=== PATIENT | female | born 1975 | race Caucasian/White ===

== ENCOUNTER 2021-12-27 17:00 | Outpatient (RCR) | payer OTHER, SELFPAY ==
--- NOTE | 2021-11-29 17:42 | PTOPEVAL ---
PHYSICAL THERAPY EVALUATION AND PLAN OF CARE Thank you for referring Umm Dumont to [facility].? The patient is scheduled to be seen for therapy? 1x/week for 5 weeks. Please review, sign, date and return this plan of care KAVEH. I agree with and certify that the following plan of care is medically necessary. Referring Physician Date Attending Provider: Jacqueline Newby Evaluation Diagnosis stress incontinence Onset 6years Subjective Information twin prgenancy with vaginal Query Text:As Reported By Patient/ delivery at age 30. Initially Family did not have any difficulty for the first 10 years and age 40 she started to noticed urinary frequency and it gradually progressed to leaking with sneezing. Might also leak when she laughs very hard. Will wear a liner on occasion for just in case occasions. Notes she will go the bathroom about 6-7 x during the day and will wake at least 1 time at night to go to the bathroom. Does not always feel like the bladder is fully empty. Pain Score Pain Score 0: Self Report Cervical and Lumbar Muscle Testing Lumbar Strength Upper Abdominal Strength 3 Fair Lower Abdominal Strength 3-Fair- Lower Extremity Muscle Strength Testing Hip Strength Left Hip Flexion Strength 5 Normal Hip Extension Strength 3 Fair Hip Abduction Strength 4 Good Hip Adduction Strength 3+ Fair + Hip Medial Rotation Strength 4 Good Hip Lateral Rotation Strength 4 Good Right Hip Flexion Strength 4 Good Hip Extension Strength 3 Fair Hip Abduction Strength 3 Fair Hip Adduction Strength 3+ Fair + Hip Medial Rotation Strength 4 Good Hip Lateral Rotation Strength 4 Good Knee Strength Left Knee Flexion Strength 5 Normal Knee Extension Strength 5 Normal Right Knee Flexion Strength 4+ Good + Knee Extension Strength 4+ Good + Muscle Length Testing Muscle Length Testing Left Hamstring Length -25 Query Text:(90 - 90 Position) Right Hamstring Length -45 Query Text:(90 - 90 Position) Palpation Assessment Palpation Palpation mild tension noted through bilateral glutes General Exercise General Exercises Exercise Location core/pelvic floor Exercis
--- NOTE | 2021-12-06 12:59 | PCPTNOTE ---
Patient called & cancelled scheduled appointment this date due to traveling for a in the family.
--- NOTE | 2021-12-27 17:46 | PTOPEVAL ---
PHYSICAL THERAPY DISCHARGE NOTE Thank you for referring Umm Dumont to [facility].?Please review, sign, date and return this plan of care KAVEH. I agree with and certify that the following plan of care is medically necessary. Referring Physician Date Attending Provider: Jacqueline Newby Discharge Diagnosis stress incontinence Onset 6years Subjective Information Feels like she is doing well. Query Text:As Reported By Patient/ Hasn't really had to use pads Family and has only gotten up in the middle of the night one time in the last week and she attributes this to drinking lemonade before bed. She is working on creating better bladder habits and avoiding the just in case bathroom break. She is consistent with her HEP. Pain Assessment Timing of Pain Assessment Timing of Pain Assessment Assessment Self Report Self Report Pain Level 0 Pain Score Pain Score 0: Self Report Lower Extremity Muscle Strength Testing Hip Strength Left Hip Flexion Strength 5 Normal Hip Extension Strength 4+ Good + Hip Abduction Strength 4+ Good + Right Hip Flexion Strength 4+ Good + Hip Extension Strength 4+ Good + Hip Abduction Strength 4+ Good + Hip Adduction Strength 3+ Fair + Knee Strength Left Knee Flexion Strength 5 Normal Knee Extension Strength 5 Normal Right Knee Flexion Strength 5 Normal Knee Extension Strength 5 Normal Muscle Length Testing Muscle Length Testing Left Hamstring Length -25 Query Text:(90 - 90 Position) Right Hamstring Length -30 Query Text:(90 - 90 Position) General Exercise Exercise Location core/pelvic floor Exercise Type Resistive Exercise Description -lower abdominal bracing with Query Text:Record Sets, Reps, marching, sequential marching Resistance, and Position -quadruped cat/cow stretch with child's pose and preferencing to each side -birddog with diaphragmatic breathing x5 each side -hooklying bent knee fall out with red band x30 -sitting on yellow chinese ball: forward/backward pelvic tilts , side to side pelvic rocking; circles each
== END 2021-12-28 09:20 | disposition home or self-care (01) ==
LOC: ANHPT 17:00
PROVIDERS: PCP Family Medicine
DX: N39.3 Stress incontinence (female) (male) (principal)
CPT/HCPCS: 97110; 97140; 97162

== ENCOUNTER 2022-09-27 11:16 | Day surgery (SDC) | payer OTHER, SELFPAY ==
[2022-06-23 10:02] VITALS: BMI 32.6
[2022-09-12 15:05] VITALS: BMI 32.3
[2022-09-27 11:50] VITALS: BP 139/62; PULSE 69; RESP 20; TEMP 36.6; O2SAT 100
[2022-09-27] MEDS: LACTATED RINGERS 1,000 ML 150 ML IV CONT (11:55)
--- NOTE | 2022-09-27 11:58 | WPDANESEPPF ---
Anes - Initial Pre Proc Eval Procedure: Operation Date: 09/27/22 13:00 Proposed Procedures p Screening Colonoscopy - Ish Weber MD Date/Time: 09/27/22 11:58 Surgeon: Ish Weber MD Pre Op Diagnosis: Family History of Colon Cancer Patient Data Age: 47 Gender: F Height: 1.75 m Weight: 99.4 kg Last Vital Signs Temp 36.6 C 09/27/22 11:50 Pulse 69 09/27/22 11:50 Resp 20 09/27/22 11:50 BP 139/62 09/27/22 11:50 Pulse Ox 100 09/27/22 11:50 Allergies Allergy/AdvReac Type Severity Reaction Status Date / Time latex Allergy Intermediate Rash Verified 09/27/22 11:47 penicillin V Allergy Unknown Unknown Verified 09/27/22 11:47 clarithromycin Allergy Unknown Verified 09/27/22 11:47 Penicillins Allergy Unknown Verified 09/27/22 11:47 Sulfa (Sulfonamide Allergy Unknown Verified 09/27/22 11:47 Antibiotics) Home Medications Medication Instructions Recorded Confirmed Type sumatriptan succinate 100 mg See Rx Instructions PO .COMPLEX #9 03/02/20 09/27/22 Rx tablet (Imitrex) tabs peg 3350-electrolytes 236 240 ml PO Q10M #4,000 mL 06/23/22 09/27/22 Rx gram-22.74 gram-6.74 gram-5.86 gram solution (Golytely) Patient hx anesthesia problems: post op nausea/vomiting Family hx anesthesia problems: none Results Review: All pre-operative results and documents have been reviewed as part of the pre-operative evaluation. [facility] Past Medical History Medical History History of depression Migraines Social History Social History Social History: Smoking status: Never smoker Second hand tobacco smoke exposure: No Alcohol intake: never Substance use: never Substance use type: does not use Living arrangements: with family Gender identity (if verbalized by the patient): Female Sexual Orientation (if Verbalized by the Patient): Straight or Heterosexual Spiritual care concerns: No Anes - Eval Final PreProcedure Day of Procedure 09/27/22 11:58 Patient weight: obese Heart: regular rate and rhythm Lungs: clear to auscultation Airway: Mallampati scale class II Neurological: alert and oriented Last oral intake: >/= 8 hours ASA classification: II Emergent: no Anesthetic plan: proceed Anesthesia type and monitoring: general GIVS and standard monitoring Results Review: All pre-operative results and documents have been reviewed as part of the pre-operative evaluation. Informed Consent: The patient's anesthetic plan and its attendant risks and benefits were discussed with the patient/family/POA. Questions were solicited and answers provided to the satisfaction of the patient/family/POA.
--- NOTE | 2022-09-27 11:59 | PM.HPGS ---
History of Present Illness History of Present Illness Consent: Risks, benefits, and alternatives have been discussed and questions answered. Patient agrees to proceed with procedure. Chief complaint: Family History of Colon Cancer Narrative: Umm Dumont is a 47 year old female Presents for screening colonoscopy. Patient's family history is significant that her father had colon cancer at age 67. Patient's current weight appetite and bowel movements are normal. She denies abdominal pain. She has had no bleeding. She presents today for screening exam. Review of Systems Review of Systems: Review of systems noncontributory. [facility] Past Medical History Medical History History of depression Migraines Social History Social History Social History: Smoking status: Never smoker Second hand tobacco smoke exposure: No Alcohol intake: never Substance use: never Substance use type: does not use Living arrangements: with family Gender identity (if verbalized by the patient): Female Sexual Orientation (if Verbalized by the Patient): Straight or Heterosexual Spiritual care concerns: No Meds Home Medications and Allergies Home Medications Medication Instructions Recorded Confirmed Type sumatriptan succinate 100 mg See Rx Instructions PO .COMPLEX #9 03/02/20 09/27/22 Rx tablet (Imitrex) tabs peg 3350-electrolytes 236 240 ml PO Q10M #4,000 mL 06/23/22 09/27/22 Rx gram-22.74 gram-6.74 gram-5.86 gram solution (Golytely) Allergies Allergy/AdvReac Type Severity Reaction Status Date / Time latex Allergy Intermediate Rash Verified 09/27/22 11:47 penicillin V Allergy Unknown Unknown Verified 09/27/22 11:47 clarithromycin Allergy Unknown Verified 09/27/22 11:47 Penicillins Allergy Unknown Verified 09/27/22 11:47 Sulfa (Sulfonamide Allergy Unknown Verified 09/27/22 11:47 Antibiotics) Vital Signs Vital Signs - 24 hr 09/27/22 11:50 Temperature 98 F Pulse Rate 69 Respiratory Rate 20 Blood Pressure 139/62 Pulse Oximetry 100 Exam Narrative: Physical exam reveals patient to be alert. Vital signs stable. HEENT exam is unremarkable. Patient is anicteric. Lungs are clear to auscultation and percussion. Heart is without murmur or extra sounds. Abdomen bowel sounds present soft nontender with no hepatosplenomegaly. Digital external rectal exam is normal. Assessment and Plan Assessment and plan (1) Family history of colorectal cancer: Code(s): Z80.0 - Family history of malignant neoplasm of digestive organs Status: Acute Assessment and Plan: Patient has a family history of colon cancer in her father. Plan is for surveillance colonoscopy now and consider this at 5 year intervals in the future.
[2022-09-27 12:53] VITALS: BP 99/53; PULSE 64; RESP 18; O2SAT 99
[2022-09-27 13:03] VITALS: BP 116/64; PULSE 64; RESP 18; O2SAT 99
[2022-09-27 13:13] VITALS: BP 105/73; PULSE 61; RESP 18; O2SAT 99
--- NOTE | 2022-09-27 13:18 | WPDANESPN ---
Anes - Prog Note Post-Op Date/Time: 09/27/22 13:18 Cardiovascular status: normal Respiratory status: normal Airway patency: baseline Mental status: baseline Post-Op hydration status: normal Vital Signs: Last Vital Signs Temp 36.6 C 09/27/22 11:50 Pulse 61 09/27/22 13:13 Resp 18 09/27/22 13:13 BP 105/73 09/27/22 13:13 Pulse Ox 99 09/27/22 13:13 O2 Del Method Room Air 09/27/22 13:13 Pain Score (VAS): 0 I/O: Intake & Output 09/26/22 09/27/22 09/27/22 23:59 07:59 15:59 Intake Total 500 Balance 500 Patient Feedback: Patient satisfied with anesthetic care.
== END 2022-09-27 13:39 | disposition home or self-care (01) ==
PROVIDERS: PCP Family Medicine; Visit Provider Internal Medicine Gastroenterology
PROC: 0DJD8ZZ Inspection of Lower Intestinal Tract, Via Natural or Artificial Opening Endoscopic (ICD-10-PCS; CPT 45378; principal; 2022-09-27 13:00)
DX: Z80.0 Family history of malignant neoplasm of digestive organs (principal)
CPT/HCPCS: 45378

== ENCOUNTER 2025-09-19 13:26 | Outpatient (CLI) | payer OTHER, SELFPAY ==
--- NOTE | ~2025-09-19 | CT_ITS ---
EXAMINATION: CT abdomen pelvis wo/w con DATE: 09/19/2025 14:23 INDICATION: Hematuria. TECHNIQUE: Computed tomography (CT) of the abdomen and pelvis was performed without and with intravenous contrast using a total of 130 mL Omnipaque-350 intravenous contrast with a double-bolus technique for simultaneous opacification of the renal parenchyma and renal collecting system. Automated exposure control and iterative reconstruction technique were employed. The dose- length product was 1739.69 mGy-cm. COMPARISON: None FINDINGS: The visualized portions of the lung bases demonstrate mild atelectasis. No pleural effusion. The heart size is normal. No pericardial effusion. The liver, gallbladder, spleen, pancreas, and adrenal glands are normal. There is a 2 mm stone in right kidney. There are 2 stones in left kidney measuring up to 4 mm. The ureters are well opacified and are normal. The bladder is not well distended. There are no dilated loops of bowel. The appendix is normal. There are no pathologically enlarged lymph nodes. There is no free intraperitoneal fluid. There is mild lumbar spondylosis. IMPRESSION: 1. Bilateral nonobstructing kidney stones. Reviewed, dictated and finalized at location E.
--- OUTSIDE RECORDS SUMMARY | 2025-09-19 13:32 | XMS_ITS | Encounter Summary ---
Author Organization [facility] Address [address] [place] [address] Care Team Providers Care Supervising Editor Trailer Name Role Phone Franky Hagen MD Primary Care Provider [phone] Encounter Details Date Type Department Care Team (Late st Contact Info) Description 10/24/[address] [facility] [address] [address] Cintia Lawler MD [address] [place], [place] [id number] Social History Tobacco Use Types Packs/Day Years Used Date Smoking Tobacco: Never Assessed Comments Unknown Sex and Gender Information Value Date Recorded Sex Assigned at Not on file Legal Sex Female 5:10 AM FACSIMILE OPERATOR Gender Identity Not on file Sexual Orientation Not on file documented as of this encounter Plan of Treatment Upcoming Encounters Date Type Department Care Team (Late st Contact Info) Description 10/11/2025 8:30 AM FACSIMILE OPERATOR Appointment [facility] A [address] [place] [address] Franky Hagen MD [address] [facility] [address] [place] [address] 09/02/2026 1:30 PM CDT Office Visit [facility] [address] [place] [address] Jacqueline Newby DO [address] [address] documented as of this encounter Visit Diagnoses Not on filedocumented in this encounter Care Teams Supervising Editor Trailer Relationship Specialty Start Date End Date Franky Hagen MD PCP - General Family Practice 01/21/11 documented as of this encounter
--- OUTSIDE RECORDS SUMMARY | 2025-09-19 13:32 | XMS_ITS | Encounter Summary ---
Author Organization [facility] Address [address] [place] [address] Care Team Providers Care Washing Machine Installer Name Role Phone Franky Hagen MD Primary Care Provider [phone] Encounter Details Date Type Department Care Team (Late st Contact Info) Description 08/29/2005 Outpatient Historical [facility] A [address] [address] Cintia Lawler MD [address] [place], [place] [id number] Social History Tobacco Use Types Packs/Day Years Used Date Smoking Tobacco: Never Assessed Comments Unknown Sex and Gender Information Value Date Recorded Sex Assigned at Not on file Legal Sex Female 5:10 AM FILM LIBRARIAN Gender Identity Not on file Sexual Orientation Not on file documented as of this encounter Plan of Treatment Upcoming Encounters Date Type Department Care Team (Late st Contact Info) Description 10/11/2025 8:30 AM FILM LIBRARIAN Appointment [facility] A [address] [place] [address] Franky Hagen MD [address] [facility] [address] [place] [address] 09/02/2026 1:30 PM CDT Office Visit [facility] [address] [place] [address] Jacqueline Newby DO [address] [address] documented as of this encounter Visit Diagnoses Not on filedocumented in this encounter Care Teams Washing Machine Installer Relationship Specialty Start Date End Date Franky Hagen MD PCP - General Family Practice 01/21/11 documented as of this encounter
--- OUTSIDE RECORDS SUMMARY | 2025-09-19 13:32 | XMS_ITS | Encounter Summary ---
Author Organization [facility] Address [address] [place] [address] Care Team Providers Care Fiber Optics Technician Name Role Phone Franky Hagen MD Primary Care Provider [phone] Encounter Details Date Type Department Care Team (Late st Contact Info) Description 10/17/2005 Outpatient Historical [facility] A [address] [address] Cintia Lawler MD [address] [place], [place] [id number] Social History Tobacco Use Types Packs/Day Years Used Date Smoking Tobacco: Never Assessed Comments Unknown Sex and Gender Information Value Date Recorded Sex Assigned at Not on file Legal Sex Female 5:10 AM INFORMATION TECHNOLOGY PROFESSOR Gender Identity Not on file Sexual Orientation Not on file documented as of this encounter Plan of Treatment Upcoming Encounters Date Type Department Care Team (Late st Contact Info) Description 10/11/2025 8:30 AM INFORMATION TECHNOLOGY PROFESSOR Appointment [facility] A [address] [place] [address] Franky Hagen MD [address] [facility] [address] [place] [address] 09/02/2026 1:30 PM CDT Office Visit [facility] [address] [place] [address] Jacqueline Newby DO [address] [address] documented as of this encounter Visit Diagnoses Not on filedocumented in this encounter Care Teams Fiber Optics Technician Relationship Specialty Start Date End Date Franky Hagen MD PCP - General Family Practice 01/21/11 documented as of this encounter
--- OUTSIDE RECORDS SUMMARY | 2025-09-19 13:32 | XMS_ITS | Encounter Summary ---
Author Organization [facility] Address [address] [place] [address] Care Team Providers Care Vp Of Digital Marketing Name Role Phone Franky Hagen MD Primary Care Provider [phone] Encounter Details Date Type Department Care Team (Late st Contact Info) Description 06/28/2005 Outpatient Historical [facility] A [address] [address] Cintia Lawler MD [address] [place], [place] [id number] Social History Tobacco Use Types Packs/Day Years Used Date Smoking Tobacco: Never Assessed Comments Unknown Sex and Gender Information Value Date Recorded Sex Assigned at Not on file Legal Sex Female 5:10 AM RN SPINE Gender Identity Not on file Sexual Orientation Not on file documented as of this encounter Plan of Treatment Upcoming Encounters Date Type Department Care Team (Late st Contact Info) Description 10/11/2025 8:30 AM RN SPINE Appointment [facility] A [address] [place] [address] Franky Hagen MD [address] [facility] [address] [place] [address] 09/02/2026 1:30 PM CDT Office Visit [facility] [address] [place] [address] Jacqueline Newby DO [address] [address] documented as of this encounter Visit Diagnoses Not on filedocumented in this encounter Care Teams Vp Of Digital Marketing Relationship Specialty Start Date End Date Franky Hagen MD PCP - General Family Practice 01/21/11 documented as of this encounter
--- OUTSIDE RECORDS SUMMARY | 2025-09-19 13:32 | XMS_ITS | Encounter Summary ---
Author Organization [facility] Address [address] [place] [address] Care Team Providers Care Crusher Tender Name Role Phone Franky Hagen MD Primary Care Provider [phone] Encounter Details Date Type Department Care Team (Late st Contact Info) Description 12/22/2005 Outpatient Historical [facility] A [address] [address] Cintia Lawler MD [address] [place], [place] [id number] Social History Tobacco Use Types Packs/Day Years Used Date Smoking Tobacco: Never Assessed Comments Unknown Sex and Gender Information Value Date Recorded Sex Assigned at Not on file Legal Sex Female 5:10 AM ROCKET ENGINE TESTER Gender Identity Not on file Sexual Orientation Not on file documented as of this encounter Plan of Treatment Upcoming Encounters Date Type Department Care Team (Late st Contact Info) Description 10/11/2025 8:30 AM ROCKET ENGINE TESTER Appointment [facility] A [address] [place] [address] Franky Hagen MD [address] [facility] [address] [place] [address] 09/02/2026 1:30 PM CDT Office Visit [facility] [address] [place] [address] Jacqueline Newby DO [address] [address] documented as of this encounter Visit Diagnoses Not on filedocumented in this encounter Care Teams Crusher Tender Relationship Specialty Start Date End Date Franky Hagen MD PCP - General Family Practice 01/21/11 documented as of this encounter
--- OUTSIDE RECORDS SUMMARY | 2025-09-19 13:32 | XMS_ITS | Encounter Summary ---
Author Organization [facility] Address [address] [place] [address] Care Team Providers Care Gas Plant Operator Name Role Phone Franky Hagen MD Primary Care Provider [phone] Encounter Details Date Type Department Care Team (Late st Contact Info) Description 11/30/2005 Outpatient Historical [facility] A [address] [address] Cintia Lawler MD [address] [place], [place] [id number] Social History Tobacco Use Types Packs/Day Years Used Date Smoking Tobacco: Never Assessed Comments Unknown Sex and Gender Information Value Date Recorded Sex Assigned at Not on file Legal Sex Female 5:10 AM GASOLINE ENGINE ASSEMBLER Gender Identity Not on file Sexual Orientation Not on file documented as of this encounter Plan of Treatment Upcoming Encounters Date Type Department Care Team (Late st Contact Info) Description 10/11/2025 8:30 AM GASOLINE ENGINE ASSEMBLER Appointment [facility] A [address] [place] [address] Franky Hagen MD [address] [facility] [address] [place] [address] 09/02/2026 1:30 PM CDT Office Visit [facility] [address] [place] [address] Jacqueline Newby DO [address] [address] documented as of this encounter Visit Diagnoses Not on filedocumented in this encounter Care Teams Gas Plant Operator Relationship Specialty Start Date End Date Franky Hagen MD PCP - General Family Practice 01/21/11 documented as of this encounter
--- OUTSIDE RECORDS SUMMARY | 2025-09-19 13:32 | XMS_ITS | Encounter Summary ---
Author Organization [facility] Address [address] [place] [address] Care Team Providers Care Sample Tester Grinder Name Role Phone Franky Hagen MD Primary Care Provider Encounter Details Date Type Department Care Team (Late st Contact Info) Description 02/02/2006 Outpatient Historical [facility] A [address] [address] Cintia Lawler MD [address] [place], [place] [phone] Social History Tobacco Use Types Packs/Day Years Used Date Smoking Tobacco: Never Assessed Comments Unknown Sex and Gender Information Value Date Recorded Sex Assigned at Not on file Legal Sex Female 5:10 AM PRODUCT SAFETY COMPLIANCE LEADER Gender Identity Not on file Sexual Orientation Not on file documented as of this encounter Plan of Treatment Upcoming Encounters Date Type Department Care Team (Late st Contact Info) Description 10/11/2025 8:30 AM PRODUCT SAFETY COMPLIANCE LEADER Appointment [facility] A [address] [place] [address] Franky Hagen MD [address] [facility] [address] [place] [address] 09/02/2026 1:30 PM CDT Office Visit [facility] [address] [place] [address] Jacqueline Newby DO [address] [address] documented as of this encounter Visit Diagnoses Not on filedocumented in this encounter Care Teams Sample Tester Grinder Relationship Specialty Start Date End Date Franky Hagen MD PCP - General Family Practice 01/21/11 documented as of this encounter
--- OUTSIDE RECORDS SUMMARY | 2025-09-19 13:32 | XMS_ITS | Encounter Summary ---
Author Organization [facility] Address [address] [place] [address] Care Team Providers Care Fiber Designer Name Role Phone Franky Hagen MD Primary Care Provider [phone] Encounter Details Date Type Department Care Team (Late st Contact Info) Description 11/02/[address] [facility] A [address] [address] Cintia Lawler MD [address] [place], [place] [phone] Social History Tobacco Use Types Packs/Day Years Used Date Smoking Tobacco: Never Assessed Comments Unknown Sex and Gender Information Value Date Recorded Sex Assigned at Not on file Legal Sex Female 5:10 AM RAT POISONER Gender Identity Not on file Sexual Orientation Not on file documented as of this encounter Plan of Treatment Upcoming Encounters Date Type Department Care Team (Late st Contact Info) Description 10/11/2025 8:30 AM RAT POISONER Appointment [facility] A [address] [place] [address] Franky Hagen MD [address] [facility] [address] [place] [address] 09/02/2026 1:30 PM CDT Office Visit [facility] [address] [place] [address] Jacqueline Newby DO [address] [address] documented as of this encounter Visit Diagnoses Not on filedocumented in this encounter Care Teams Fiber Designer Relationship Specialty Start Date End Date Franky Hagen MD PCP - General Family Practice 01/21/11 documented as of this encounter
--- OUTSIDE RECORDS SUMMARY | 2025-09-19 13:32 | XMS_ITS | Encounter Summary ---
Author Organization [facility] Address [address] [place] [address] Care Team Providers Care Wicker Worker Name Role Phone Franky Hagen MD Primary Care Provider [phone] Encounter Details Date Type Department Care Team (Late st Contact Info) Description 07/12/2005 Outpatient Historical [facility] [address] [place] [address] Cintia Lawler MD [address] [place], [place] [id number] Social History Tobacco Use Types Packs/Day Years Used Date Smoking Tobacco: Never Assessed Comments Unknown Sex and Gender Information Value Date Recorded Sex Assigned at Not on file Legal Sex Female 5:10 AM CRAYON PAINTER Gender Identity Not on file Sexual Orientation Not on file documented as of this encounter Plan of Treatment Upcoming Encounters Date Type Department Care Team (Late st Contact Info) Description 10/11/2025 8:30 AM CRAYON PAINTER Appointment [facility] A [address] [place] [address] Franky Hagen MD [address] [facility] [address] [place] [address] 09/02/2026 1:30 PM CDT Office Visit [facility] [address] [place] [address] Jacqueline Newby DO [address] [address] documented as of this encounter Visit Diagnoses Not on filedocumented in this encounter Care Teams Wicker Worker Relationship Specialty Start Date End Date Franky Hagen MD PCP - General Family Practice 01/21/11 documented as of this encounter
--- OUTSIDE RECORDS SUMMARY | 2025-09-19 13:32 | XMS_ITS | Encounter Summary ---
Author Organization [facility] Address [address] [place] [address] Care Team Providers Care Box Lidder Name Role Phone Franky Hagen MD Primary Care Provider [phone] Encounter Details Date Type Department Care Team (Late st Contact Info) Description 08/03/[address] [facility] A [address] [address] Cintia Lawler MD [address] [place], [place] [id number] Social History Tobacco Use Types Packs/Day Years Used Date Smoking Tobacco: Never Assessed Comments Unknown Sex and Gender Information Value Date Recorded Sex Assigned at Not on file Legal Sex Female 5:10 AM ACCOUNTING RECONCILIATION CLERK Gender Identity Not on file Sexual Orientation Not on file documented as of this encounter Plan of Treatment Upcoming Encounters Date Type Department Care Team (Late st Contact Info) Description 10/11/2025 8:30 AM ACCOUNTING RECONCILIATION CLERK Appointment [facility] A [address] [place] [address] Franky Hagen MD [address] [facility] [address] [place] [address] 09/02/2026 1:30 PM CDT Office Visit [facility] [address] [place] [address] Jacqueline Newby DO [address] [address] documented as of this encounter Visit Diagnoses Not on filedocumented in this encounter Care Teams Box Lidder Relationship Specialty Start Date End Date Franky Hagen MD PCP - General Family Practice 01/21/11 documented as of this encounter
--- OUTSIDE RECORDS SUMMARY | 2025-09-19 13:32 | XMS_ITS | Encounter Summary ---
Author Organization [facility] Address [address] [place] [address] Care Team Providers Care Information Systems Analyst Name Role Phone Franky Hagen MD Primary Care Provider Encounter Details Date Type Department Care Team (Late st Contact Info) Description 09/28/2005 Outpatient Historical [facility] A [address] [address] Cintia Lawler MD [address] [place], [place] [id number] Social History Tobacco Use Types Packs/Day Years Used Date Smoking Tobacco: Never Assessed Comments Unknown Sex and Gender Information Value Date Recorded Sex Assigned at Not on file Legal Sex Female 5:10 AM RETAIL ADMINISTRATIVE ASSISTANT Gender Identity Not on file Sexual Orientation Not on file documented as of this encounter Plan of Treatment Upcoming Encounters Date Type Department Care Team (Late st Contact Info) Description 10/11/2025 8:30 AM RETAIL ADMINISTRATIVE ASSISTANT Appointment [facility] A [address] [place] [address] Franky Hagen MD [address] [facility] [address] [place] [address] 09/02/2026 1:30 PM CDT Office Visit [facility] [address] [place] [address] Jacqueline Newby DO [address] [address] documented as of this encounter Visit Diagnoses Not on filedocumented in this encounter Care Teams Information Systems Analyst Relationship Specialty Start Date End Date Franky Hagen MD PCP - General Family Practice 01/21/11 documented as of this encounter
--- OUTSIDE RECORDS SUMMARY | 2025-09-19 13:32 | XMS_ITS | Encounter Summary ---
Author Organization [facility] Address [address] [place] [address] Care Team Providers Care Cellular Plastics Cutter Name Role Phone Franky Hagen MD Primary Care Provider [phone] Encounter Details Date Type Department Care Team (Late st Contact Info) Description 11/02/2007 Outpatient Historical [facility] A [address] [address] Cintia Lawler MD [address] [place], [place] [id number] Social History Tobacco Use Types Packs/Day Years Used Date Smoking Tobacco: Never Assessed Comments Unknown Sex and Gender Information Value Date Recorded Sex Assigned at Not on file Legal Sex Female 5:10 AM BROKERAGE CLERK Gender Identity Not on file Sexual Orientation Not on file documented as of this encounter Plan of Treatment Upcoming Encounters Date Type Department Care Team (Late st Contact Info) Description 10/11/2025 8:30 AM BROKERAGE CLERK Appointment [facility] A [address] [place] [address] Franky Hagen MD [address] [facility] [address] [place] [address] 09/02/2026 1:30 PM CDT Office Visit [facility] [address] [place] [address] Jacqueline Newby DO [address] [address] documented as of this encounter Visit Diagnoses Not on filedocumented in this encounter Care Teams Cellular Plastics Cutter Relationship Specialty Start Date End Date Franky Hagen MD PCP - General Family Practice 01/21/11 documented as of this encounter
--- OUTSIDE RECORDS SUMMARY | 2025-09-19 13:32 | XMS_ITS | Clinical Summary ---
Author Organization [facility] Address [address] [place] [address] Care Team Providers Care Finisher Cold Rolling Name Role Phone Franky Hagen MD Primary Care Provider [phone] [facility],non-owned Affiliates and Associated Physician Practices is amultiple site organization consisting of ambulatory clinics and hospital sitesin [place], [place], [place] and [place]. This disclosure is being madepursuant to the Care Everywhere program and may not contain all information available regarding this patient. Last updated 18.[facility] Allergies Active Allergy Reactions Criticality Noted Date Comments Latex Rash Medium 11/18/2009 Penicillins Rash Medium 11/18/2009 Immunizations Immunization Administration Dates Next Due INFLUENZA VACCINE, QUADR. (F LUZONE; FLULAVAL; FLUARIX; AFLURIA QUADRIVALENT; 6MO+), 0.5 ML (IIV4) 08/19/2020,09/12/2019 Influenza Pf Intradermal (ADULT) 08/19/2016 Social History Tobacco Use Types Packs/Day Years Used Date Smoking Tobacco: Never Assessed Comments Unknown Sex and Gender Information Value Date Recorded Sex Assigned at Not on file Legal Sex Female 4:34 PM CDT Gender Identity Not on file Sexual Orientation Not on file Plan of Treatment Health Maintenance Due Date Last Done Comments COLOGUARD (AGES 45-75) - COL ON CA SCREENING 1975 COLON MONITORING 1975 COLONOSCOPY - COLON CA SCREENING 1975 CT COLONOGRAPHY - COLON CA SCREENING 1975 Colorectal Cancer Screening 1975 FIT - COLON CA SCREENING 1975 FLEX SIG - COLON CA SCREENING 1975 LIPID TESTING 1975 HIV SCREENING 1990 HEPATITIS C SCREENING 06/12/1993 DTAP/TDAP/TD VACCINES (1 - Tdap) 1994 HEPATITIS B VACCINE (1 of 3 - 19+ 3-dose series) 1994 MAMMOGRAM 06/18/2021 06/18/2019 DEPRESSION SCREENING 11/20/2024 PNEUMOCOCCAL VACCINE 50+ (1 of 1 - PCV) 2025 ZOSTER VACCINE (1 of 2) 2025 COVID-19 VACCINE (1 - 2023-2 5 season) 2025 INFLUENZA VACCINE (#1) 2025 0, 09/12/2019, 08/19/2016 HIB VACCINE Aged Out No longer eligi ble based on patient's age to complete this topic HPV VACCINE Aged Out No longer eligi ble based on patient's age to complete this topic MENINGOCOCCAL (Group B) VACCINE SHARED DECISION-MAKING Aged Out No longer eligible based on patient's age to complete this topic MENINGOCOCCAL GROUPS A/C/Y/W VACCINE Aged Out No longer eligible b ased on patient's age to complete this topic Insurance [facility] Care Teams Finisher Cold Rolling Relationship Specialty Start Date End Date Franky Hagen MD [address] [place] [address] PCP - General Family Medicine 08/19/16
--- OUTSIDE RECORDS SUMMARY | 2025-09-19 13:32 | XMS_ITS | Encounter Summary ---
Author Organization [facility] Address [address] [place] [address] Care Team Providers Care Software Configuration Analyst Name Role Phone Franky Hagen MD Primary Care Provider [phone] Encounter Details Date Type Department Care Team (Late st Contact Info) Description 12/16/2005 Outpatient Historical [facility] Maternal and [address] [place] [address] Ilya Antonio MD [address] [place] [address] Social History Tobacco Use Types Packs/Day Years Used Date Smoking Tobacco: Never Assessed Comments Unknown Sex and Gender Information Value Date Recorded Sex Assigned at Not on file Legal Sex Female 5:10 AM FUNNEL SETTER Gender Identity Not on file Sexual Orientation Not on file documented as of this encounter Plan of Treatment Upcoming Encounters Date Type Department Care Team (Late st Contact Info) Description 10/11/2025 8:30 AM FUNNEL SETTER Appointment [facility] [place] A [address] [place] [address] Franky Hagen MD [address] [facility] [address] [place] [address] 09/02/2026 1:30 PM CDT Office Visit [facility] [address] [place] [address] Jacqueline Newby, DO [address] [facility] [address] [place] [address] documented as of this encounter Visit Diagnoses Not on filedocumented in this encounter Care Teams Software Configuration Analyst Relationship Specialty Start Date End Date Franky Hagen MD PCP - General Family Practice 01/21/11 documented as of this encounter
--- OUTSIDE RECORDS SUMMARY | 2025-09-19 13:32 | XMS_ITS | Encounter Summary ---
Author Organization [facility] Address [address] [place] [address] Care Team Providers Care Over Hauler Helper Name Role Phone Franky Hagen MD Primary Care Provider [phone] Encounter Details Date Type Department Care Team (Late st Contact Info) Description 11/16/2005 Outpatient Historical [facility] [address] [address] Cintia Lawler MD [address] [place], [place] [phone] Social History Tobacco Use Types Packs/Day Years Used Date Smoking Tobacco: Never Assessed Comments Unknown Sex and Gender Information Value Date Recorded Sex Assigned at Not on file Legal Sex Female 5:10 AM CHANGE OVER Gender Identity Not on file Sexual Orientation Not on file documented as of this encounter Plan of Treatment Upcoming Encounters Date Type Department Care Team (Late st Contact Info) Description 10/11/2025 8:30 AM CHANGE OVER Appointment [facility] A [address] [place] [address] Franky Hagen MD [address] [facility] [address] [place] [address] 09/02/2026 1:30 PM CDT Office Visit [facility] [address] [place] [address] Jacqueline Newby DO [address] [address] documented as of this encounter Visit Diagnoses Not on filedocumented in this encounter Care Teams Over Hauler Helper Relationship Specialty Start Date End Date Franky Hagen MD PCP - General Family Practice 01/21/11 documented as of this encounter
--- OUTSIDE RECORDS SUMMARY | 2025-09-19 13:32 | XMS_ITS | Encounter Summary ---
Author Organization [facility] Address [address] [place] [address] Care Team Providers Care Fire Battalion Chief Name Role Phone Franky Hagen MD Primary Care Provider [phone] Encounter Details Date Type Department Care Team (Latest Contact Info) Description 12/15/2005 Inpatient Historical HIS OB PREADMIT Cintia Lawler MD NO ADDRESS ON FILE TRANS HYPERTEN-DELIVERED (Primary Dx) Social History Tobacco Use Types Packs/Day Years Used Date Smoking Tobacco: Never Assessed Comments Unknown Sex and Gender Information Value Date Recorded Sex Assigned at Not on file Legal Sex Female 5:10 AM LIFE SCIENCES MANAGER Gender Identity Not on file Sexual Orientation Not on file documented as of this encounter Plan of Treatment Upcoming Encounters Date Type Department Care Team (Late st Contact Info) Description 10/11/2025 8:30 AM LIFE SCIENCES MANAGER Appointment [facility] [place] [address] [place] [address] Franky Hagen MD [address] [place] [id number] 09/02/2026 1:30 PM CDT Office Visit [facility] [address] [place] [address] Jacqueline Newby DO [address] [facility] [place] [address] [place] [address] documented as of this encounter Procedures Procedure Name Priority Date/Time Associated Diagnosis Comments CBC WITH DIFFERENTIAL Routine 12/23/2005 5:55 AM LIFE SCIENCES MANAGER CBC WITH DIFFERENTIAL Routine 12/23/2005 5:55 AM LIFE SCIENCES MANAGER BLOOD GAS CORD VENOUS Routine 12/22/2005 8:00 PM LIFE SCIENCES MANAGER BLOOD GAS CORD ARTERIAL Routine 12/22/2005 8:00 PM LIFE SCIENCES MANAGER BLOOD GAS CORD VENOUS Routine 12/22/2005 7:58 PM LIFE SCIENCES MANAGER BLOOD GAS CORD ARTERIAL Routine 12/22/2005 7:58 PM LIFE SCIENCES MANAGER CREATININE CLEARANCE, SERUM Routine 12/22/2005 1:02 PM LIFE SCIENCES MANAGER CREATININE, 24 HR URINE Routine 12/22/2005 1:02 PM LIFE SCIENCES MANAGER PROTEIN, 24 HR URINE Routine 12/22/2005 1:02 PM LIFE SCIENCES MANAGER CREATININE CLEARANCE Routine 12/22/2005 1:02 PM LIFE SCIENCES MANAGER CBC WITH DIFFERENTIAL Routine 12/22/2005 6:20 AM LIFE SCIENCES MANAGER CBC WITH DIFFERENTIAL Routine 12/22/2005 6:20 AM LIFE SCIENCES MANAGER URIC ACID Routine 12/22/2005 6:20 AM LIFE SCIENCES MANAGER CREATININE Routine 12/22/2005 6:20 AM LIFE SCIENCES MANAGER URINALYSIS W/REFLEX MICROSCOPIC Routine 12/20/2005 10:50 AM LIFE SCIENCES MANAGER CBC WITH DIFFERENTIAL Routine 12/20/2005 10:00 AM LIFE SCIENCES MANAGER CBC WITH DIFFERENTIAL Routine 12/20/2005 10:00 AM LIFE SCIENCES MANAGER URIC ACID Routine 12/20/2005 10:00 AM LIFE SCIENCES MANAGER CREATININE Routine 12/20/2005 10:00 AM LIFE SCIENCES MANAGER CBC WITH DIFFERENTIAL Routine 12/19/2005 9:18 AM LIFE SCIENCES MANAGER CBC WITH DIFFERENTIAL Routine 12/19/2005 9:18 AM LIFE SCIENCES MANAGER URIC ACID Routine 12/19/2005 9:18 AM LIFE SCIENCES MANAGER ALT Routine 12/19/2005 9:18 AM LIFE SCIENCES MANAGER AST Routine 12/19/2005 9:18 AM LIFE SCIENCES MANAGER CREATININE Routine 12/19/2005 9:18 AM LIFE SCIENCES MANAGER CBC WITH DIFFERENTIAL Routine 12/17/2005 7:00 AM LIFE SCIENCES MANAGER CBC WITH DIFFERENTIAL Routine 12/17/2005 7:00 AM LIFE SCIENCES MANAGER URIC ACID Routine 12/17/2005 7:00 AM LIFE SCIENCES MANAGER AST Routine 12/17/2005 7:00 AM LIFE SCIENCES MANAGER LACTATE DEHYDROGENASE Routine 12/17/2005 7:00 AM LIFE SCIENCES MANAGER CREATININE CLEARANCE, SERUM Routine 12/16/2005 6:49 PM LIFE SCIENCES MANAGER CREATININE, 24 HR URINE Routine 12/16/2005 6:49 PM LIFE SCIENCES MANAGER PROTEIN, 24 HR URINE Routine 12/16/2005 6:49 PM LIFE SCIENCES MANAGER CREATININE CLEARANCE Routine 12/16/2005 6:49 PM LIFE SCIENCES MANAGER CBC WITH DIFFERENTIAL Routine 12/16/2005 5:46 AM LIFE SCIENCES MANAGER CBC WITH DIFFERENTIAL Routine 12/16/2005 5:46 AM LIFE SCIENCES MANAGER URIC ACID Routine 12/16/2005 5:46 AM LIFE SCIENCES MANAGER DIC PROFILE Routine 12/15/2005 5:10 PM LIFE SCIENCES MANAGER CBC WITH DIFFERENTIAL Routine 12/15/2005 5:10 PM LIFE SCIENCES MANAGER CBC WITH DIFFERENTIAL Routine 12/15/2005 5:10 PM LIFE SCIENCES MANAGER URINALYSIS W/REFLEX MICROSCOPIC Routine 12/15/2005 5:10 PM LIFE SCIENCES MANAGER URIC ACID Routine 12/15/2005 5:10 PM LIFE SCIENCES MANAGER AST Routine 12/15/2005 5:10 PM LIFE SCIENCES MANAGER LACTATE DEHYDROGENASE Routine 12/15/2005 5:10 PM LIFE SCIENCES MANAGER documented in this encounter Results * (ABNORMAL) CBC WITH DIFFERENTIAL (12/23/2005 5:55 AM LIFE SCIENCES MANAGER) NEUTROPHILS 78(H) 45 - 70 % INTERFAC E SYSTEM LYMPHOCYTES 17 16 - 45 % INTERFAC E SYSTEM MONOCYTES 5 3 - 13 % INTERFACE SYSTEM EOSINOPHILS 0 0 - 7 % INTERFAC E SYSTEM BASOPHILS 0 0 - 2 % INTERFACE SYSTEM NEUTROPHIL ABSOLUTE 9.77(H) 1.90 - 7.00 K/uL INTERFACE SYSTEM LYMPHOCYTE ABSOLUTE 2.07 0.70 - 4.50 K/uL INTERFACE SYSTEM MONOCYTE ABSOLUTE 0.60 0.10 - 1.30 K/uL INTERFACE SYSTEM EOSINOPHIL ABSOLUTE 0.04 0.00 - 0.70 K/uL INTERFACE SYSTEM BASOPHILS ABSOLUTE 0.00 0.00 - 0.20 K/uL INTERFACE SYSTEM 12/23/2005 5:55 AM LIFE SCIENCES MANAGER Cintia Lawler MD HEMATOLOGY ORDERABLES Final Res ult INTERFACE SYSTEM Refer to clinic/hospital department * (ABNORMAL) CBC WITH DIFFERENTIAL (12/23/2005 5:55 AM LIFE SCIENCES MANAGER) WBC 12.5(H) 4.0 - 9.8 K/uL INTERFACE SYSTEM RBC 4.03 3.90 - 4.90 M/uL INTERFACE SYSTEM HEMOGLOBIN 11.8 11.8 - 14.8 g/dL INTERFACE SYSTEM HEMATOCRIT 34.6(L) 35.5 - 44.0 % INTERFACE SYSTEM MCV 85.9 82.0 - 99.0 fL INTERFACE SYSTEM MCH 29.3 27.2 - 32.6 pg INTERFACE SYSTEM MCHC 34.1 31.5 - 35.5 % INTERFACE SYSTEM RDW 14.6(H) 11.5 - 14.5 % INTERFACE SYSTEM RDW-STDEV 44.9 37.1 - 48.7 fL INTERFACE SYSTEM PLATELETS 148 140 - 350 K/uL INTERFACE SYSTEM MPV 13.5(H) 9.3 - 12.4 fL INTERFACE SYSTEM 12/23/2005 5:55 AM LIFE SCIENCES MANAGER Cintia Lawler MD HEMATOLOGY ORDERABLES Final Res ult Performing Organization Address City/[facility] [[email or web address]] Co de Phone Number INTERFACE SYSTEM Refer to clinic/hospital department * (ABNORMAL) BLOOD GAS CORD VENOUS (12/22/2005 8:00 PM LIFE SCIENCES MANAGER) PH CORD VENOUS 7.41 7.23 - 7.46 INTERFACE SYSTEM PCO2 CORD VENOUS 37 28 - 57 mm Hg INTERFACE SYSTEM PO2 CORD VENOUS 20 15 - 42 mm Hg INTERFACE SYSTEM SO2 CORD AMISH 55 14 - 75 % INTERFA CE SYSTEM FO2HB CORD VENOUS 54(L) 94 - 98 % INTERFACE SYSTEM HCO3 CORD VENOUS 23 17 - 25 mmol/L INTERFACE SYSTEM BASE EXCESS CORD VENOUS -1.6 -5.8 - 0.7 mmol/L INTERFACE SYSTEM HEMOGLOBIN CORD VENOUS 14.9 14.5 - 22.5 g/dL INTERFACE SYSTEM 12/22/2005 8:00 PM LIFE SCIENCES MANAGER Cintia Lawler MD ABG ORDERABLES Final Result Performing Organization Address [facility] [[email or web address]] Co de Phone Number INTERFACE SYSTEM Refer to clinic/hospital department * (ABNORMAL) BLOOD GAS CORD ARTERIAL (12/22/2005 8:00 PM LIFE SCIENCES MANAGER) PH CORD ARTERIAL 7.40 7.14 - 7.40 INTERFACE SYSTEM PCO2 CORD ARTERIAL 40 32 - 69 mm Hg INTERFACE SYSTEM PO2 CORD ARTERIAL 14 8 - 33 mm Hg INTERFACE SYSTEM SO2 CORD ARTERIAL 27 5 - 59 % INTERFACE SYSTEM FO2HB CORD ARTERIAL 26(L) 94 - 98 % INTERFACE SYSTEM HCO3 CORD ARTERIAL 24 16 - 27 mmol/L INTERFACE SYSTEM BASE EXCESS CORD ARTERIAL -0.6 -7.6 - 1.3 mmol/L INTERFACE SYSTEM HEMOGLOBIN CORD ARTERIAL 15.6 14.5 - 22.5 g/dL INTERFACE SYSTEM 12/22/2005 8:00 PM LIFE SCIENCES MANAGER Cintia Lawler MD ABG ORDERABLES Final Result Performing Organization Address [facility] Phone Number INTERFACE SYSTEM Refer to clinic/hospital department * (ABNORMAL) BLOOD GAS CORD VENOUS (12/22/2005 7:58 PM LIFE SCIENCES MANAGER) PH CORD VENOUS 7.44 7.23 - 7.46 INTERFACE SYSTEM PCO2 CORD VENOUS 33 28 - 57 mm Hg INTERFACE SYSTEM PO2 CORD VENOUS 22 15 - 42 mm Hg INTERFACE SYSTEM SO2 CORD AMISH 63 14 - 75 % INTERFA CE SYSTEM FO2HB CORD VENOUS 61(L) 94 - 98 % INTERFACE SYSTEM HCO3 CORD VENOUS 22 17 - 25 mmol/L INTERFACE SYSTEM BASE EXCESS CORD VENOUS -1.7 -5.8 - 0.7 mmol/L INTERFACE SYSTEM HEMOGLOBIN CORD VENOUS 13.9(L) 14.5 - 22.5 g/dL INTERFACE SYSTEM 12/22/2005 7:58 PM LIFE SCIENCES MANAGER Cintia Lawler MD ABG ORDERABLES Final Result Performing Organization Address [facility] Phone Number INTERFACE SYSTEM Refer to clinic/hospital department * (ABNORMAL) BLOOD GAS CORD ARTERIAL (12/22/2005 7:58 PM LIFE SCIENCES MANAGER) PH CORD ARTERIAL 7.38 7.14 - 7.40 INTERFACE SYSTEM PCO2 CORD ARTERIAL 40 32 - 69 mm Hg INTERFACE SYSTEM PO2 CORD ARTERIAL 18 8 - 33 mm Hg INTERFACE SYSTEM SO2 CORD ARTERIAL 41 5 - 59 % INTERFACE SYSTEM FO2HB CORD ARTERIAL 39(L) 94 - 98 % INTERFACE SYSTEM HCO3 CORD ARTERIAL 23 16 - 27 mmol/L INTERFACE SYSTEM BASE EXCESS CORD ARTERIAL -2.0 -7.6 - 1.3 mmol/L INTERFACE SYSTEM HEMOGLOBIN CORD ARTERIAL 14.2(L) 14.5 - 22.5 g/dL INTERFACE SYSTEM 12/22/2005 7:58 PM LIFE SCIENCES MANAGER Cintia Lawler MD ABG ORDERABLES Final Result Performing Organization Address [facility] Phone Number INTERFACE SYSTEM Refer to clinic/hospital department * CREATININE CLEARANCE (12/22/2005 1:02 PM LIFE SCIENCES MANAGER) CREATININE CLEARANCE 109 75 - 125 mL/min/1.7 sq meter INTERFACE SYSTEM Comment:Creatinine Clearance result is not corrected for body surface area. 12/22/2005 1:02 PM LIFE SCIENCES MANAGER Cintia Lawler MD URINE ORDERABLES Final Result Performing Organization Address [facility] Phone Number INTERFACE SYSTEM Refer to clinic/hospital department * (ABNORMAL) PROTEIN, 24 HR URINE (12/22/2005 1:02 PM LIFE SCIENCES MANAGER) PROTEIN TOTAL, 24 HR URINE 0.53(H) 0.00 - 0.15 g/24 hrs INTERFACE SYSTEM PROTEIN CONCENTRATION 34.0 mg/dL INTERFACE SYSTEM 12/22/2005 1:02 PM LIFE SCIENCES MANAGER Cintia Lawler MD URINE ORDERABLES Final Result Performing Organization Address [facility] Phone Number INTERFACE SYSTEM Refer to clinic/hospital department * CREATININE, 24 HR URINE (12/22/2005 1:02 PM LIFE SCIENCES MANAGER) START DATE 24 HR UR : [id number] :[id number] :0:0 INTERFACE SYSTEM START TIME 24 HR UR 1100 time INTERFACE SYSTEM LENGTH OF COLLECTION 24 23 - 25 hr INTERFACE SYSTEM VOLUME, 24 HR URINE 1550 mL INTERFACE SYSTEM CREATININE, 24 HR URINE 1.3 0.6 - 1.8 g/24 hrs INTERFACE SYSTEM 12/22/2005 1:02 PM LIFE SCIENCES MANAGER Cintia Lawler MD URINE ORDERABLES Final Result Performing Organization Address [facility] Phone Number INTERFACE SYSTEM Refer to clinic/hospital department * CREATININE CLEARANCE, SERUM (12/22/2005 1:02 PM LIFE SCIENCES MANAGER) CREATININE 0.8 0.4 - 1.2 mg/dL INTERFACE SYSTEM 12/22/2005 1:02 PM LIFE SCIENCES MANAGER us Cintia Lawler MD CHEMISTRY ORDERABLES Final Resu lt Performing Organization Address City/[facility] [[email or web address]] Co de Phone Number INTERFACE SYSTEM Refer to clinic/hospital department * CBC WITH DIFFERENTIAL (12/22/2005 6:20 AM LIFE SCIENCES MANAGER) NEUTROPHILS 68 45 - 70 % INTERFAC E SYSTEM LYMPHOCYTES 26 16 - 45 % INTERFAC E SYSTEM MONOCYTES 6 3 - 13 % INTERFACE SYSTEM EOSINOPHILS 1 0 - 7 % INTERFAC E SYSTEM BASOPHILS 0 0 - 2 % INTERFACE SYSTEM NEUTROPHIL ABSOLUTE 5.97 1.90 - 7.00 K/uL INTERFACE SYSTEM LYMPHOCYTE ABSOLUTE 2.24 0.70 - 4.50 K/uL INTERFACE SYSTEM MONOCYTE ABSOLUTE 0.48 0.10 - 1.30 K/uL INTERFACE SYSTEM EOSINOPHIL ABSOLUTE 0.08 0.00 - 0.70 K/uL INTERFACE SYSTEM BASOPHILS ABSOLUTE 0.01 0.00 - 0.20 K/uL INTERFACE SYSTEM 12/22/2005 6:20 AM LIFE SCIENCES MANAGER us Cintia Lawler MD HEMATOLOGY ORDERABLES Final Res ult Performing Organization Address [facility] de Phone Number INTERFACE SYSTEM Refer to clinic/hospital department * (ABNORMAL) CBC WITH DIFFERENTIAL (12/22/2005 6:20 AM LIFE SCIENCES MANAGER) WBC 8.8 4.0 - 9.8 K/uL INTERFACE SYSTEM RBC 3.67(L) 3.90 - 4.90 M/uL INTERFACE SYSTEM HEMOGLOBIN 10.8(L) 11.8 - 14.8 g/dL INTERFACE SYSTEM HEMATOCRIT 31.7(L) 35.5 - 44.0 % INTERFACE SYSTEM MCV 86.4 82.0 - 99.0 fL INTERFACE SYSTEM MCH 29.4 27.2 - 32.6 pg INTERFACE SYSTEM MCHC 34.1 31.5 - 35.5 % INTERFACE SYSTEM RDW 14.6(H) 11.5 - 14.5 % INTERFACE SYSTEM RDW-STDEV 45.2 37.1 - 48.7 fL INTERFACE SYSTEM PLATELETS 138(L) 140 - 350 K/uL INTERFACE SYSTEM MPV 13.4(H) 9.3 - 12.4 fL INTERFACE SYSTEM 12/22/2005 6:20 AM LIFE SCIENCES MANAGER Cintia Lawler MD HEMATOLOGY ORDERABLES Final Res ult Performing Organization Address [facility] de Phone Number INTERFACE SYSTEM Refer to clinic/hospital department * CREATININE (12/22/2005 6:20 AM LIFE SCIENCES MANAGER) CREATININE 0.8 0.4 - 1.2 mg/dL INTERFACE SYSTEM 12/22/2005 6:20 AM LIFE SCIENCES MANAGER us Cintia Lawler MD CHEMISTRY ORDERABLES Final Resu lt Performing Organization Address [facility] Phone Number INTERFACE SYSTEM Refer to clinic/hospital department * (ABNORMAL) URIC ACID (12/22/2005 6:20 AM LIFE SCIENCES MANAGER) URIC ACID 7.3(H) 2.3 - 6.6 mg/dL INTERFACE SYSTEM 12/22/2005 6:20 AM LIFE SCIENCES MANAGER us Cintia Lawler MD CHEMISTRY ORDERABLES Final Resu lt Performing Organization Address [facility] de Phone Number INTERFACE SYSTEM Refer to clinic/hospital department * (ABNORMAL) URINALYSIS (12/20/2005 10:50 AM LIFE SCIENCES MANAGER) COLOR UA Yellow INTERFACE SYSTEM CLARITY UA Slt. Cloudy(A) Clear INTERFACE SYSTEM SPECIFIC GRAVITY UA 1.010 1.001 - 1.035 INTERFACE SYSTEM PH UA 6.5 5.0 - 8.0 INTERFACE SYSTEM LEUKOCYTE ESTERASE UA 1+(A) Negative INTERFACE SYSTEM NITRITE UA Negative Negative INTERFACE SYSTEM PROTEIN UA Trace(A) Negative INTERFACE SYSTEM GLUCOSE UA Negative Negative INTERFACE SYSTEM KETONES UA Negative Negative INTERFACE SYSTEM UROBILINOGEN UA <1 <1 mg/dL INTE RFACE SYSTEM BILIRUBIN UA Negative Negative INTERFA CE SYSTEM BLOOD UA Negative Negative INTERFACE SYSTEM WBC UA 3 0 - 5 /HPF INTERFACE SYSTEM RBC UA <1 0 - 4 /HPF INTERFACE SYSTEM BACTERIA UA 1+(A) None Seen /HPF INTERFACE SYSTEM EPITHELIAL CELLS, URINE 5-10 /HPF INTERFACE SYSTEM 12/20/2005 10:5 0 AM LIFE SCIENCES MANAGER Cintia Lawler MD URINE ORDERABLES Final Result Performing Organization Address [facility] de Phone Number INTERFACE SYSTEM Refer to clinic/hospital department * (ABNORMAL) CBC WITH DIFFERENTIAL (12/20/2005 10:00 AM LIFE SCIENCES MANAGER) NEUTROPHILS 75(H) 45 - 70 % INTERFAC E SYSTEM LYMPHOCYTES 21 16 - 45 % INTERFAC E SYSTEM MONOCYTES 4 3 - 13 % INTERFACE SYSTEM EOSINOPHILS 1 0 - 7 % INTERFAC E SYSTEM BASOPHILS 0 0 - 2 % INTERFACE SYSTEM NEUTROPHIL ABSOLUTE 6.23 1.90 - 7.00 K/uL INTERFACE SYSTEM LYMPHOCYTE ABSOLUTE 1.74 0.70 - 4.50 K/uL INTERFACE SYSTEM MONOCYTE ABSOLUTE 0.30 0.10 - 1.30 K/uL INTERFACE SYSTEM EOSINOPHIL ABSOLUTE 0.06 0.00 - 0.70 K/uL INTERFACE SYSTEM BASOPHILS ABSOLUTE 0.00 0.00 - 0.20 K/uL INTERFACE SYSTEM 12/20/2005 10:0 0 AM LIFE SCIENCES MANAGER Cintia Lawler MD HEMATOLOGY ORDERABLES Final Res ult Performing Organization Address [facility] de Phone Number INTERFACE SYSTEM Refer to clinic/hospital department * (ABNORMAL) CBC WITH DIFFERENTIAL (12/20/2005 10:00 AM LIFE SCIENCES MANAGER) WBC 8.3 4.0 - 9.8 K/uL INTERFACE SYSTEM RBC 3.84(L) 3.90 - 4.90 M/uL INTERFACE SYSTEM HEMOGLOBIN 11.3(L) 11.8 - 14.8 g/dL INTERFACE SYSTEM HEMATOCRIT 33.2(L) 35.5 - 44.0 % INTERFACE SYSTEM MCV 86.5 82.0 - 99.0 fL INTERFACE SYSTEM MCH 29.4 27.2 - 32.6 pg INTERFACE SYSTEM MCHC 34.0 31.5 - 35.5 % INTERFACE SYSTEM RDW 14.6(H) 11.5 - 14.5 % INTERFACE SYSTEM RDW-STDEV 45.5 37.1 - 48.7 fL INTERFACE SYSTEM PLATELETS 148 140 - 350 K/uL INTERFACE SYSTEM MPV 12.4 9.3 - 12.4 fL INTERFACE SYSTEM 12/20/2005 10:0 0 AM LIFE SCIENCES MANAGER us Cintia Lawler MD HEMATOLOGY ORDERABLES Final Res ult Performing Organization Address [facility] de Phone Number INTERFACE SYSTEM Refer to clinic/hospital department * CREATININE (12/20/2005 10:00 AM LIFE SCIENCES MANAGER) CREATININE 0.8 0.4 - 1.2 mg/dL INTERFACE SYSTEM 12/20/2005 10:0 0 AM LIFE SCIENCES MANAGER us Cintia Lawler MD CHEMISTRY ORDERABLES Final Resu lt Performing Organization Address [facility] de Phone Number INTERFACE SYSTEM Refer to clinic/hospital department * (ABNORMAL) URIC ACID (12/20/2005 10:00 AM LIFE SCIENCES MANAGER) URIC ACID 6.8(H) 2.3 - 6.6 mg/dL INTERFACE SYSTEM 12/20/2005 10:0 0 AM LIFE SCIENCES MANAGER us Cintia Lawler MD CHEMISTRY ORDERABLES Final Resu lt Performing Organization Address [facility] de Phone Number INTERFACE SYSTEM Refer to clinic/hospital department * (ABNORMAL) CBC WITH DIFFERENTIAL (12/19/2005 9:18 AM LIFE SCIENCES MANAGER) NEUTROPHILS 73(H) 45 - 70 % INTERFAC E SYSTEM LYMPHOCYTES 22 16 - 45 % INTERFAC E SYSTEM MONOCYTES 4 3 - 13 % INTERFACE SYSTEM EOSINOPHILS 1 0 - 7 % INTERFAC E SYSTEM BASOPHILS 0 0 - 2 % INTERFACE SYSTEM NEUTROPHIL ABSOLUTE 6.03 1.90 - 7.00 K/uL INTERFACE SYSTEM LYMPHOCYTE ABSOLUTE 1.85 0.70 - 4.50 K/uL INTERFACE SYSTEM MONOCYTE ABSOLUTE 0.34 0.10 - 1.30 K/uL INTERFACE SYSTEM EOSINOPHIL ABSOLUTE 0.07 0.00 - 0.70 K/uL INTERFACE SYSTEM BASOPHILS ABSOLUTE 0.00 0.00 - 0.20 K/uL INTERFACE SYSTEM 12/19/2005 9:18 AM LIFE SCIENCES MANAGER Cintia Lawler MD HEMATOLOGY ORDERABLES Final Res ult Performing Organization Address [facility] Phone Number INTERFACE SYSTEM Refer to clinic/hospital department * (ABNORMAL) CBC WITH DIFFERENTIAL (12/19/2005 9:18 AM LIFE SCIENCES MANAGER) WBC 8.3 4.0 - 9.8 K/uL INTERFACE SYSTEM RBC 3.94 3.90 - 4.90 M/uL INTERFACE SYSTEM HEMOGLOBIN 11.7(L) 11.8 - 14.8 g/dL INTERFACE SYSTEM HEMATOCRIT 33.9(L) 35.5 - 44.0 % INTERFACE SYSTEM MCV 86.0 82.0 - 99.0 fL INTERFACE SYSTEM MCH 29.7 27.2 - 32.6 pg INTERFACE SYSTEM MCHC 34.5 31.5 - 35.5 % INTERFACE SYSTEM RDW 14.4 11.5 - 14.5 % INTERFACE SYSTEM RDW-STDEV 44.7 37.1 - 48.7 fL INTERFACE SYSTEM PLATELETS 159 140 - 350 K/uL INTERFACE SYSTEM MPV 13.1(H) 9.3 - 12.4 fL INTERFACE SYSTEM 12/19/2005 9:18 AM LIFE SCIENCES MANAGER us Cintia Lawler MD HEMATOLOGY ORDERABLES Final Res ult Performing Organization Address [facility] Phone Number INTERFACE SYSTEM Refer to clinic/hospital department * CREATININE (12/19/2005 9:18 AM LIFE SCIENCES MANAGER) CREATININE 0.8 0.4 - 1.2 mg/dL INTERFACE SYSTEM 12/19/2005 9:18 AM LIFE SCIENCES MANAGER us Cintia Lawler MD CHEMISTRY ORDERABLES Final Resu lt Performing Organization Address [facility] Phone Number INTERFACE SYSTEM Refer to clinic/hospital department * ALT (12/19/2005 9:18 AM LIFE SCIENCES MANAGER) ALT 11 0 - 31 U/L INTERFACE SYSTEM 12/19/2005 9:18 AM LIFE SCIENCES MANAGER us Cintia Lawler MD CHEMISTRY ORDERABLES Final Resu lt Performing Organization Address [facility]/ZIP Co de Phone Number INTERFACE SYSTEM Refer to clinic/hospital department * AST (12/19/2005 9:18 AM LIFE SCIENCES MANAGER) AST 22 12 - 32 U/L INTERFAC E SYSTEM 12/19/2005 9:18 AM LIFE SCIENCES MANAGER Cintia Lawler MD CHEMISTRY ORDERABLES Final Resu lt Performing Organization Address [facility] de Phone Number INTERFACE SYSTEM Refer to clinic/hospital department * URIC ACID (12/19/2005 9:18 AM LIFE SCIENCES MANAGER) URIC ACID 6.5 2.3 - 6.6 mg/dL INTERFACE SYSTEM 12/19/2005 9:18 AM LIFE SCIENCES MANAGER Cintia Lawler MD CHEMISTRY ORDERABLES Final Resu lt Performing Organization Address [facility] de Phone Number INTERFACE SYSTEM Refer to clinic/hospital department * (ABNORMAL) CBC WITH DIFFERENTIAL (12/17/2005 7:00 AM LIFE SCIENCES MANAGER) NEUTROPHILS 71(H) 45 - 70 % INTERFAC E SYSTEM LYMPHOCYTES 22 16 - 45 % INTERFAC E SYSTEM MONOCYTES 6 3 - 13 % INTERFACE SYSTEM EOSINOPHILS 1 0 - 7 % INTERFAC E SYSTEM BASOPHILS 0 0 - 2 % INTERFACE SYSTEM NEUTROPHIL ABSOLUTE 5.83 1.90 - 7.00 K/uL INTERFACE SYSTEM LYMPHOCYTE ABSOLUTE 1.82 0.70 - 4.50 K/uL INTERFACE SYSTEM MONOCYTE ABSOLUTE 0.48 0.10 - 1.30 K/uL INTERFACE SYSTEM EOSINOPHIL ABSOLUTE 0.09 0.00 - 0.70 K/uL INTERFACE SYSTEM BASOPHILS ABSOLUTE 0.00 0.00 - 0.20 K/uL INTERFACE SYSTEM 12/17/2005 7:00 AM LIFE SCIENCES MANAGER Cintia Lawler MD HEMATOLOGY ORDERABLES Final Res ult Performing Organization Address [facility] de Phone Number INTERFACE SYSTEM Refer to clinic/hospital department * (ABNORMAL) CBC WITH DIFFERENTIAL (12/17/2005 7:00 AM LIFE SCIENCES MANAGER) WBC 8.2 4.0 - 9.8 K/uL INTERFACE SYSTEM RBC 3.62(L) 3.90 - 4.90 M/uL INTERFACE SYSTEM HEMOGLOBIN 10.5(L) 11.8 - 14.8 g/dL INTERFACE SYSTEM HEMATOCRIT 31.7(L) 35.5 - 44.0 % INTERFACE SYSTEM MCV 87.6 82.0 - 99.0 fL INTERFACE SYSTEM MCH 29.0 27.2 - 32.6 pg INTERFACE SYSTEM MCHC 33.1 31.5 - 35.5 % INTERFACE SYSTEM RDW 14.5 11.5 - 14.5 % INTERFACE SYSTEM RDW-STDEV 46.1 37.1 - 48.7 fL INTERFACE SYSTEM PLATELETS 149 140 - 350 K/uL INTERFACE SYSTEM MPV 12.8(H) 9.3 - 12.4 fL INTERFACE SYSTEM 12/17/2005 7:00 AM LIFE SCIENCES MANAGER Cintia Lawler MD HEMATOLOGY ORDERABLES Final Res ult Performing Organization Address City/[facility] Phone Number INTERFACE SYSTEM Refer to clinic/hospital department * LACTATE DEHYDROGENASE (12/17/2005 7:00 AM LIFE SCIENCES MANAGER) LD (LACTATE DEHYDROGENASE) 159 135 - 214 U/L INTERFACE SYSTEM 12/17/2005 7:00 AM LIFE SCIENCES MANAGER Cintia Lawler MD CHEMISTRY ORDERABLES Final Resu lt Performing Organization Address [facility] Phone Number INTERFACE SYSTEM Refer to clinic/hospital department * AST (12/17/2005 7:00 AM LIFE SCIENCES MANAGER) AST 19 12 - 32 U/L INTERFAC E SYSTEM 12/17/2005 7:00 AM LIFE SCIENCES MANAGER Cintia Lawler MD CHEMISTRY ORDERABLES Final Resu lt Performing Organization Address City/[facility] de Phone Number INTERFACE SYSTEM Refer to clinic/hospital department * (ABNORMAL) URIC ACID (12/17/2005 7:00 AM LIFE SCIENCES MANAGER) URIC ACID 7.0(H) 2.3 - 6.6 mg/dL INTERFACE SYSTEM 12/17/2005 7:00 AM LIFE SCIENCES MANAGER Cintia Lawler MD CHEMISTRY ORDERABLES Final Resu lt Performing Organization Address [facility] Phone Number INTERFACE SYSTEM Refer to clinic/hospital department * CREATININE CLEARANCE (12/16/2005 6:49 PM LIFE SCIENCES MANAGER) CREATININE CLEARANCE 114 75 - 125 mL/min/1.7 sq meter INTERFACE SYSTEM Comment:Creatinine Clearance result is not corrected for body surface area. 12/16/2005 6:49 PM LIFE SCIENCES MANAGER us Herbert Alaniz MD URINE ORDERABLES Final Result Performing Organization Address [facility] Phone Number INTERFACE SYSTEM Refer to clinic/hospital department * (ABNORMAL) PROTEIN, 24 HR URINE (12/16/2005 6:49 PM LIFE SCIENCES MANAGER) PROTEIN TOTAL, 24 HR URINE 0.20(H) 0.00 - 0.15 g/24 hrs INTERFACE SYSTEM PROTEIN CONCENTRATION 10.0 mg/dL INTERFACE SYSTEM 12/16/2005 6:49 PM LIFE SCIENCES MANAGER us Herbert Alaniz MD URINE ORDERABLES Final Result Performing Organization Address [facility] Phone Number INTERFACE SYSTEM Refer to clinic/hospital department * CREATININE, 24 HR URINE (12/16/2005 6:49 PM LIFE SCIENCES MANAGER) START DATE 24 HR UR [id number] :[id number] :0:0 INTERFACE SYSTEM START TIME 24 HR UR 1840 time INTERFACE SYSTEM LENGTH OF COLLECTION 24 23 - 25 hr INTERFACE SYSTEM VOLUME, 24 HR URINE 2000 mL INTERFACE SYSTEM CREATININE, 24 HR URINE 1.3 0.6 - 1.8 g/24 hrs INTERFACE SYSTEM 12/16/2005 6:49 PM LIFE SCIENCES MANAGER us Herbert Alaniz MD URINE ORDERABLES Final Result Performing Organization Address [facility] [facility] Phone Number INTERFACE SYSTEM Refer to clinic/hospital department * CREATININE CLEARANCE, SERUM (12/16/2005 6:49 PM LIFE SCIENCES MANAGER) CREATININE 0.8 0.4 - 1.2 mg/dL INTERFACE SYSTEM 12/16/2005 6:49 PM LIFE SCIENCES MANAGER us Herbert Alaniz MD CHEMISTRY ORDERABLES Final Re sult Performing Organization Address [facility] [[email or web address]] Co de Phone Number INTERFACE SYSTEM Refer to clinic/hospital department * CBC WITH DIFFERENTIAL (12/16/2005 5:46 AM LIFE SCIENCES MANAGER) NEUTROPHILS 69 45 - 70 % INTERFAC E SYSTEM LYMPHOCYTES 26 16 - 45 % INTERFAC E SYSTEM MONOCYTES 5 3 - 13 % INTERFACE SYSTEM EOSINOPHILS 1 0 - 7 % INTERFAC E SYSTEM BASOPHILS 0 0 - 2 % INTERFACE SYSTEM NEUTROPHIL ABSOLUTE 5.86 1.90 - 7.00 K/uL INTERFACE SYSTEM LYMPHOCYTE ABSOLUTE 2.19 0.70 - 4.50 K/uL INTERFACE SYSTEM MONOCYTE ABSOLUTE 0.41 0.10 - 1.30 K/uL INTERFACE SYSTEM EOSINOPHIL ABSOLUTE 0.08 0.00 - 0.70 K/uL INTERFACE SYSTEM BASOPHILS ABSOLUTE 0.01 0.00 - 0.20 K/uL INTERFACE SYSTEM 12/16/2005 5:46 AM LIFE SCIENCES MANAGER us Cintia Lawler MD HEMATOLOGY ORDERABLES Final Res ult Performing Organization Address [facility] de Phone Number INTERFACE SYSTEM Refer to clinic/hospital department * (ABNORMAL) CBC WITH DIFFERENTIAL (12/16/2005 5:46 AM LIFE SCIENCES MANAGER) WBC 8.6 4.0 - 9.8 K/uL INTERFACE SYSTEM RBC 3.66(L) 3.90 - 4.90 M/uL INTERFACE SYSTEM HEMOGLOBIN 10.7(L) 11.8 - 14.8 g/dL INTERFACE SYSTEM HEMATOCRIT 31.8(L) 35.5 - 44.0 % INTERFACE SYSTEM MCV 86.9 82.0 - 99.0 fL INTERFACE SYSTEM MCH 29.2 27.2 - 32.6 pg INTERFACE SYSTEM MCHC 33.6 31.5 - 35.5 % INTERFACE SYSTEM RDW 14.6(H) 11.5 - 14.5 % INTERFACE SYSTEM RDW-STDEV 45.9 37.1 - 48.7 fL INTERFACE SYSTEM PLATELETS 156 140 - 350 K/uL INTERFACE SYSTEM MPV 12.9(H) 9.3 - 12.4 fL INTERFACE SYSTEM 12/16/2005 5:46 AM LIFE SCIENCES MANAGER Cintia Lawler MD HEMATOLOGY ORDERABLES Final Res ult Performing Organization Address [facility] de Phone Number INTERFACE SYSTEM Refer to clinic/hospital department * (ABNORMAL) URIC ACID (12/16/2005 5:46 AM LIFE SCIENCES MANAGER) URIC ACID 7.4(H) 2.3 - 6.6 mg/dL INTERFACE SYSTEM 12/16/2005 5:46 AM LIFE SCIENCES MANAGER Cintia Lawler MD CHEMISTRY ORDERABLES Final Resu lt Performing Organization Address [facility] de Phone Number INTERFACE SYSTEM Refer to clinic/hospital department * URINALYSIS (12/15/2005 5:10 PM LIFE SCIENCES MANAGER) COLOR UA Yellow INTERFACE SYSTEM CLARITY UA Clear Clear INTERFACE SYSTEM SPECIFIC GRAVITY UA 1.005 1.001 - 1.035 INTERFACE SYSTEM PH UA 7.0 5.0 - 8.0 INTERFACE SYSTEM LEUKOCYTE ESTERASE UA Negative Negative INTERFACE SYSTEM NITRITE UA Negative Negative INTERFACE SYSTEM PROTEIN UA Negative Negative INTERFACE SYSTEM GLUCOSE UA Negative Negative INTERFACE SYSTEM KETONES UA Negative Negative INTERFACE SYSTEM UROBILINOGEN UA <1 <1 mg/dL INTE RFACE SYSTEM BILIRUBIN UA Negative Negative INTERFA CE SYSTEM BLOOD UA Negative Negative INTERFACE SYSTEM 12/15/2005 5:10 PM LIFE SCIENCES MANAGER Cintia Lawler MD URINE ORDERABLES Final Result Performing Organization Address [facility] [[email or web address]] Co de Phone Number INTERFACE SYSTEM Refer to clinic/hospital department * (ABNORMAL) CBC WITH DIFFERENTIAL (12/15/2005 5:10 PM LIFE SCIENCES MANAGER) NEUTROPHILS 71(H) 45 - 70 % INTERFAC E SYSTEM LYMPHOCYTES 22 16 - 45 % INTERFAC E SYSTEM MONOCYTES 7 3 - 13 % INTERFACE SYSTEM EOSINOPHILS 1 0 - 7 % INTERFAC E SYSTEM BASOPHILS 0 0 - 2 % INTERFACE SYSTEM NEUTROPHIL ABSOLUTE 6.05 1.90 - 7.00 K/uL INTERFACE SYSTEM LYMPHOCYTE ABSOLUTE 1.86 0.70 - 4.50 K/uL INTERFACE SYSTEM MONOCYTE ABSOLUTE 0.57 0.10 - 1.30 K/uL INTERFACE SYSTEM EOSINOPHIL ABSOLUTE 0.06 0.00 - 0.70 K/uL INTERFACE SYSTEM BASOPHILS ABSOLUTE 0.00 0.00 - 0.20 K/uL INTERFACE SYSTEM 12/15/2005 5:10 PM LIFE SCIENCES MANAGER Cintia Lawler MD HEMATOLOGY ORDERABLES Final Res ult Performing Organization Address [facility] de Phone Number INTERFACE SYSTEM Refer to clinic/hospital department * (ABNORMAL) CBC WITH DIFFERENTIAL (12/15/2005 5:10 PM LIFE SCIENCES MANAGER) WBC 8.5 4.0 - 9.8 K/uL INTERFACE SYSTEM RBC 3.84(L) 3.90 - 4.90 M/uL INTERFACE SYSTEM HEMOGLOBIN 11.2(L) 11.8 - 14.8 g/dL INTERFACE SYSTEM HEMATOCRIT 33.1(L) 35.5 - 44.0 % INTERFACE SYSTEM MCV 86.2 82.0 - 99.0 fL INTERFACE SYSTEM MCH 29.2 27.2 - 32.6 pg INTERFACE SYSTEM MCHC 33.8 31.5 - 35.5 % INTERFACE SYSTEM RDW 14.4 11.5 - 14.5 % INTERFACE SYSTEM RDW-STDEV 44.6 37.1 - 48.7 fL INTERFACE SYSTEM PLATELETS 176 140 - 350 K/uL INTERFACE SYSTEM MPV 13.1(H) 9.3 - 12.4 fL INTERFACE SYSTEM 12/15/2005 5:10 PM LIFE SCIENCES MANAGER Cintia Lawler MD HEMATOLOGY ORDERABLES Final Res ult Performing Organization Address [facility] [[email or web address]] Co de Phone Number INTERFACE SYSTEM Refer to clinic/hospital department * (ABNORMAL) DIC PROFILE (12/15/2005 5:10 PM LIFE SCIENCES MANAGER) PROTIME 13.5 12.7 - 15.1 Seconds INTERFACE SYSTEM INR 0.9 0.9 - 1.1 INTERFACE SYSTEM Comment: INR Therapeutic Range: Adult: 2.0 - 3.0 for pulmonary embolism or prophylaxis against venous thrombosis or systemic embolization. 2.0 - 3.0 for patients with tissue heart valves. 2.5 - 3.5 for patients with mechanical heart valves or post [place]. Pediatric (12 years and under): 1.5 - 3.0 Although the target range in children is not well established , INR values of 1.5 - 3.0 are recommended for most patients. Higher values have been used in children with prosthetic cardiac valves and hereditary clotting disorders. (<3 days) therapeutic ranges have not been established. PTT 26.9 24.4 - 36.4 Seconds INTERFACE SYSTEM Comment: PTT Therapeutic Range: Heparin Level PTT (seconds) <0.10 units/mL <53 0.10 - 0.30 units/mL 53 - 67 0.30 - 0.70 units/mL* 67 - 95* 0.70 - 1.00 units/mL 95 - 116 *corresponds to therapeutic range for unfractionated heparin FIBRINOGEN 506(H) 161 - 476 mg/dL INTERFACE SYSTEM D-DIMER QUANT 2.62(H) <=0.42 ug/mL FEU INTERFACE SYSTEM Comment: DVT Screen reference range <0.45 ug/mL FEU D. Dimer Interpretation: The reference range is not clearly established in uncomplicated pregnanc ies. Values above the upper limit of the reference range are common from the 31st to 40th week of . High negative predictive values for DVT have been reported with the current methodology, as part of a comprehensive medical examination, including risk stratification. 12/15/2005 5:10 PM LIFE SCIENCES MANAGER Cintia Lawler MD HEMATOLOGY ORDERABLES Final Res ult Performing Organization Address [facility] Phone Number INTERFACE SYSTEM Refer to clinic/hospital department * URIC ACID (12/15/2005 5:10 PM LIFE SCIENCES MANAGER) URIC ACID 6.6 2.3 - 6.6 mg/dL INTERFACE SYSTEM 12/15/2005 5:10 PM LIFE SCIENCES MANAGER Cintia Lawler MD CHEMISTRY ORDERABLES Final Resu lt Performing Organization Address [facility] de Phone Number INTERFACE SYSTEM Refer to clinic/hospital department * (ABNORMAL) LACTATE DEHYDROGENASE (12/15/2005 5:10 PM LIFE SCIENCES MANAGER) LD (LACTATE DEHYDROGENASE) 215(H) 135 - 214 U/L INTERFACE SYSTEM Comment:Slight hemolysis pre sent. Result may be falsely elevated. 12/15/2005 5:10 PM LIFE SCIENCES MANAGER us Cintia Lawler MD CHEMISTRY ORDERABLES Final Resu lt Performing Organization Address [facility] Phone Number INTERFACE SYSTEM Refer to clinic/hospital department * AST (12/15/2005 5:10 PM LIFE SCIENCES MANAGER) AST 30 12 - 32 U/L INTERFAC E SYSTEM 12/15/2005 5:10 PM LIFE SCIENCES MANAGER us Cintia Lawler MD CHEMISTRY ORDERABLES Final Resu lt Performing Organization Address [facility] Phone Number INTERFACE SYSTEM Refer to clinic/hospital department documented in this encounter Visit Diagnoses Diagnosis Transient hypertension of , with delivery- Primary Visit for screening mammogram Other screening mammogram documented in this encounter Care Teams Fire Battalion Chief Relationship Specialty Start Date End Date Franky Hagen MD PCP - General Family Practice 01/21/11 documented as of this encounter
--- OUTSIDE RECORDS SUMMARY | 2025-09-19 13:32 | XMS_ITS | Encounter Summary ---
Author Organization [facility] Address [address] [place] [address] Care Team Providers Care Joint Cutter Machine Name Role Phone Franky Hagen MD Primary Care Provider Encounter Details Date Type Department Care Team (Late st Contact Info) Description 12/15/2005 Outpatient Historical [facility] [address] [address] Cintia Lawler MD [address] [place], [place] [id number] Social History Tobacco Use Types Packs/Day Years Used Date Smoking Tobacco: Never Assessed Comments Unknown Sex and Gender Information Value Date Recorded Sex Assigned at Not on file Legal Sex Female 5:10 AM IMPREGNATING MACHINE OPERATOR Gender Identity Not on file Sexual Orientation Not on file documented as of this encounter Plan of Treatment Upcoming Encounters Date Type Department Care Team (Late st Contact Info) Description 10/11/2025 8:30 AM IMPREGNATING MACHINE OPERATOR Appointment [facility] A [address] [place] [address] Franky Hagen MD [address] [facility] [address] [place] [phone] 09/02/2026 1:30 PM CDT Office Visit [facility] [address] [place] [address] Jacqueline Newby DO [address] [address] documented as of this encounter Visit Diagnoses Not on filedocumented in this encounter Care Teams Joint Cutter Machine Relationship Specialty Start Date End Date Franky Hagen MD PCP - General Family Practice 01/21/11 documented as of this encounter
--- OUTSIDE RECORDS SUMMARY | 2025-09-19 13:32 | XMS_ITS | Encounter Summary ---
Author Organization [facility] Address [address] [place] [address] Care Team Providers Care Fast Food Team Member Name Role Phone Franky Hagen MD Primary Care Provider [phone] Encounter Details Date Type Department Care Team (Late st Contact Info) Description 11/02/2007 Outpatient Historical [facility] [address] [address] Cintia Lawler MD [address] [place], [place] [phone] Social History Tobacco Use Types Packs/Day Years Used Date Smoking Tobacco: Never Assessed Comments Unknown Sex and Gender Information Value Date Recorded Sex Assigned at Not on file Legal Sex Female 5:10 AM INDUSTRIAL SAFETY ENGINEER Gender Identity Not on file Sexual Orientation Not on file documented as of this encounter Plan of Treatment Upcoming Encounters Date Type Department Care Team (Late st Contact Info) Description 10/11/2025 8:30 AM INDUSTRIAL SAFETY ENGINEER Appointment [facility] A [address] [place] [address] Franky Hagen MD [address] [facility] [address] [place] [phone] 09/02/2026 1:30 PM CDT Office Visit [facility] [address] [place] [address] Jacqueline Newby DO [address] [address] documented as of this encounter Visit Diagnoses Not on filedocumented in this encounter Care Teams Fast Food Team Member Relationship Specialty Start Date End Date Franky Hagen MD PCP - General Family Practice 01/21/11 documented as of this encounter
--- OUTSIDE RECORDS SUMMARY | 2025-09-19 13:32 | XMS_ITS | Clinical Summary ---
Author Organization [facility] [address] Address [address] [place] [address] Care Team Providers Care Presentation Manager Name Role Phone Franky Hagen MD Primary Care Provider Allergies Active Allergy Reactions Criticality Noted Date Comments Latex Rash Medium 11/18/2009 Penicillins Rash Medium 11/18/2009 Medications buPROPion XL (WELLBUTRIN XL) 150 mg 24 hr tablet Take 1 tablet (150 mg total) by mouth daily 10/16/2023 Active SUMAtriptan (IMITREX) 100 mg tablet Take 1 tablet (100 mg total) by mouth 06/13/2023 Active Active Problems Problem Noted Date Diagnosed Date Pain of foot 10/21/2013 Surgical History Surgery Date Site/Laterality Comments HYSTERECTOMY 11/20/2021 - 11/19/2022 Social History Tobacco Use Types Packs/Day Years Used Date Smoking Tobacco: Never Personal Safety Answer Date Recorded Getting School Help Needed Not on file 12/20 Comments Unknown Sex and Gender Information Value Date Recorded Sex Assigned at Not on file Legal Sex Female 4:49 AM ANTICHECKING IRON WORKER Gender Identity Not on file Sexual Orientation Not on file Obstetrics History Last Filed Vital Signs Vital Sign Reading Time Taken Comments Blood Pressure 102/70 02/02/2024 11:24 AM CDT Pulse 80 02/02/2024 11:24 AM CDT Temperature 36.7 C (98.1 F) 12/20/2023 8:39 AM ANTICHECKING IRON WORKER Respiratory Rate 16 12/20/2023 8:39 AM ANTICHECKING IRON WORKER Oxygen Saturation 97% 12/20/2023 8:39 AM ANTICHECKING IRON WORKER Inhaled Oxygen Concentration - - Weight 97.5 kg (215 lb) 02/02/2024 11:24 AM CDT Height 175.3 cm (5' 9) 02/02/2024 11:24 AM CDT Body Mass Index 31.75 02/02/2024 11:24 AM CDT Plan of Treatment Health Maintenance Due Date Last Done Comments Colon Cancer Screening-Colonoscopy 1975 Depression Screening 1975 Hepatitis C Screening 1975 Hepatitis B Screening 1993 Regular Well Visit/Exam 18-64 1993 Breast Cancer Screening-Mammogram 09/23/2024 09/23/2023, 09/23/2023, 09/20/2022, Additional history exists Zoster Vaccine (1 of 2) 2025 Influenza Vaccine (#1) 2025 , 09/12/2019, 10/09/2014 DTaP/Tdap/Td Vaccine (2 - Td or Tdap) 11/17/2025 11/17/2015 Pneumococcal vaccine <65 Aged Out No longer eligible based on patient's age to complete this topic Insurance [facility] H[facility]PPO Address: [facility] [address] [place] [address] [facility]/PPO Address: [facility] [id number] [place] [address] Care Teams Presentation Manager Relationship Specialty Start Date End Date Franky Hagen MD [address] [facility] [address] [place] [address] PCP - General Family Medicine 04/29/21
--- OUTSIDE RECORDS SUMMARY | 2025-09-19 13:32 | XMS_ITS | Clinical Summary ---
Author Organization [facility] Address [address] [facility], [place] [address] Phone Care Team Providers Care Air Analysis Technician Name Role Phone Franky Hagen MD Primary Care Provider [phone] Allergies Active Allergy Reactions Criticality Noted Date Comments Latex Rash Low 11/18/2009 Penicillins Rash Low 11/18/2009 Medications mv-min/folic/vit K/lycop/coQ10 (DAILY MULTIVITAMIN ORAL) Take by mouth. Activ e ibuprofen (MOTRIN) 600 mg tablet Take 1 Tablet (600 mg) by mouth every 6 hours as needed for Pain, Mild. 60 Tablet 10/21/20 22 Active SUMAtriptan (IMITREX) 100 mg tablet Take 100 mg by mouth see administration instructions. 06/13/20 23 Active buPROPion HCL (WELLBUTRIN XL) 150 mg Extended Release 24 hour tablet TAKE 1 TABLET(150 MG) BY MOUTH DAILY IN THE MORNING 90 Tablet 3 10/31/20 24 Active Active Problems Problem Noted Date Diagnosed Date Stress incontinence 01/19/2018 Hirsutism 12/21/2012 MTHFR mutation 12/08/2010 Resolved Problems Problem Noted Date Diagnosed Date Resolved Date Menorrhagia with regular cycle 01/19/2018 10/21/2022 Nabothian cyst 06/15/2017 05/31/2020 Encounters Date Type Department Care Team Description 09/17/2025 External Device Data STL ABSTRACTION Provider, Abstract 09/17/2025 Results Follow-Up [facility] [address] [place] [address] Giacalone, Jacqueline Lynda, DO COMPREHENSIVE METABOLIC PANEL, CORTISOL LEVEL, DHEA-SULFATE, Additional followed-up results: 8 09/16/2025 External Device Data STL ABSTRACTION Provider, Abstract 09/10/2025 External Device Data STL ABSTRACTION Provider, Abstract 09/09/2025 External Device Data STL ABSTRACTION Provider, Abstract 09/01/2025 1:30 PM CDT Office Visit [facility] [address] [facility] [address] [place] [address] Jacqueline Newby DO Encounter for gynecological examination without abnormal finding (Primary Dx); Hot flashes; Situational depression; S/P total hysterectomy 08/06/2025 External Device Data STL ABSTRACTION Provider, Abstract 08/05/2025 External Device Data STL ABSTRACTION Provider, Abstract 06/24/2025 External Device Data STL ABSTRACTION Provider, Abstract from Last 3 Months Family History Medical History Relation Name Comments Heart Failure Father High Cholesterol Father Hypertension Father Bipolar Disorder Maternal Grandmother Breast Cancer Other M GR Aunt 60's Relation Name Status Comments Father Maternal Grandmother Other M GR Aunt Social History Tobacco Use Types Packs/Day Years Used Date Smoking Tobacco: Never Smokeless Tobacco: Never Tobacco Cessation:Counseling Given: Not Answered Alcohol Use Standard Drinks/Week Comments Yes 0 (1 standard drink = 0.6 oz pur e alcohol) quarterly drink Comments No Sex and Gender Information Value Date Recorded Sex Assigned at Not on file Legal Sex Female 5:10 AM CHEMISTRY FACULTY MEMBER Gender Identity Not on file Sexual Orientation Not on file Last Filed Vital Signs Vital Sign Reading Time Taken Comments Blood Pressure 122/70 09/01/2025 1:49 PM CDT Pulse 64 10/07/2022 8:22 AM CHEMISTRY FACULTY MEMBER Temperature 36.6 C (97.9 F) 10/07/2022 8:22 AM CHEMISTRY FACULTY MEMBER Respiratory Rate 15 10/07/2022 8:22 AM CHEMISTRY FACULTY MEMBER Oxygen Saturation 98% 10/07/2022 8:22 AM CHEMISTRY FACULTY MEMBER Inhaled Oxygen Concentration - - Weight 98.4 kg (217 lb) 09/01/2025 1:49 PM CDT Height 175.3 cm (5' 9) 09/01/2025 1:49 PM CDT Body Mass Index 32.05 09/01/2025 1:49 PM CDT Plan of Treatment Upcoming Encounters Date Type Department Care Team (Late st Contact Info) Description 10/11/2025 8:30 AM CHEMISTRY FACULTY MEMBER Appointment [facility] [place] A [address] [place] [address] Franky Hagen MD [address] [place] [address] 09/02/2026 1:30 PM CDT Office Visit [facility] [address] [facility] [address] [place] [address] Jacqueline Newby DO [address] [facility] [address] [place] [address] Health Maintenance Due Date Last Done Comments Pre-Diabetes and Diabetes Screening 1975 DTAP/TDAP/TD VACCINES (1 - Tdap) 1994 HEPATITIS B VACCINES (1 of 3 - 19+ 3-dose series) 1994 COLORECTAL SCREENING 2020 Colorectal Cancer Screening 2020 FIT-DNA Q 3 years 2020 FIT/FOBT Q 1 year 2020 Flex Sig/CT Colonography Q 5 years 2020 ZOSTER VACCINE (1 of 2) 2025 BREAST CANCER SCREENING 09/24/2025 09/24/20 24, 09/23/2023, 09/20/2022, Additional history exists INFLUENZA VACCINE Completed 08/02/2025, , 09/12/2019 Preventative Visit- Commercial Completed 1 , 08/22/2024, 08/18/2023, Additional history exists Procedures Procedure Name Priority Date/Time Associated Diagnosis Comments TSH Routine 09/15/2025 7:25 AM CDT Hot flashes T4 FREE Routine 09/15/2025 7:25 AM CDT Hot flashes T3 FREE Routine 09/15/2025 7:25 AM CDT Hot flashes SEX HORMONE BINDING GLOBULIN Routine 09/15/2025 7:25 AM CDT Hot flashes PROGESTERONE Routine 09/15/2025 7:25 AM CDT Hot flashes LUTEINIZING HORMONE Routine 09/15/2025 7 :25 AM CDT Hot flashes FSH Routine 09/15/2025 7:25 AM CDT Hot flashes ESTRADIOL Routine 09/15/2025 7:25 AM CDT Hot flashes DHEA-SULFATE Routine 09/15/2025 7:25 AM CDT Hot flashes CORTISOL LEVEL Routine 09/15/2025 7:25 AM CDT Hot flashes COMPREHENSIVE METABOLIC PANEL Routine 09/15/2025 7:25 AM CDT Hot flashes MAMMO 3D OLAYINKA SCREEN BILAT W OR WO CAD Routine 09/24/2024 9:44 AM CHEMISTRY FACULTY MEMBER Encounter for screening mammogram for breast cancer from Last 3 Months or Most Recently Relevant to Health Maintenance Results * SEX HORMONE BINDING GLOBULIN (09/15/2025 7:25 AM CDT) SEX HORMONE BINDING GLOBULIN 22 17 - 124 nmol/L [facility] Comment: Test Performed at: [facility] [address] [place] [address] Nimesh Lopez MD Blood 09/15/2025 7:25 AM CDT 09/15/2025 7:25 AM CDT Jacqueline Newby DO CHEMISTRY ORDERABLES F inal Result [facility] [phone] [facility] [address] [place] [address] * PROGESTERONE (09/15/2025 7:25 AM CDT) Pathologist [facility] PROGESTERONE 0.8 ng/mL [facility] [place] Comment: Reference Ranges Female Follicular Phase < 1.0 Luteal Phase 2.6-21.5 Post menopausal < 0.5 1st Trimester 4.1-34.0 2nd Trimester 24.0-76.0 3rd Trimester 52.0-302.0 Test Performed at: [facility] [place] [address] [place] [address] Nimesh Lopez Blood 09/15/2025 7:25 AM CDT 09/15/2025 7:25 AM CDT Jacqueline Newby DO CHEMISTRY ORDERABLES F inal Result Performing Organization Address City/[facility]/ZIP Code Phone Number [facility] [phone] [place] [address] [place] [address] * DHEA-SULFATE (09/15/2025 7:25 AM CDT) Pathologist [facility] DHEA-SULFATE 45 15 - 205 mcg/dL [facility] [facility] Comment: Test Performed at: [facility] [address] [place] [address] [facility] Parkwaysirisha Lopez MD Blood 09/15/2025 7:25 AM CDT 09/15/2025 7:25 AM CDT Jacqueline Lynda Newby DO CHEMISTRY ORDERABLES F inal Result Performing Organization Address City/State/ZIP Co ok Phone Number [facility] [phone] [facility] [address] [place] [address] * ESTRADIOL (09/15/2025 7:25 AM CDT) [facility] ESTRADIOL 49 pg/mL [facility] Comment: Reference Range Female: Follicular Phase: 30-144 Mid-Cycle: 64-357 Luteal Phase: 56-214 Postmenopausal: < or = 31 Reference range established on post-pubertal patient population. No pre-pubertal reference range established using this assay. For any patients for whom low Estradiol levels are anticipated (e.g. males, pre-pubertal children and hypogonadal/post-menopausal females), the [facility] Estradiol, Ultrasensitive, LCMSMS assay is recommended (order code 67697). Please note: patients being treated with the drug fulvestrant (Faslodex(R)) have demonstrated significant interference in immunoassay methods for estradiol measurement. The cross reactivity could lead to falsely elevated estradiol test results leading to an inappropriate clinical assessment of estrogen status. [facility] order code [id number], Ultrasensitive LC/MS/MS demonstrates negligible cross reactivity with fulvestrant. FASTING:NO FASTING: NO Test Performed at: [facility] [place] [address] [place] [address] Nimesh Lopez Blood 09/15/2025 7:25 AM CDT 09/15/2025 7:25 AM CDT [employer] Lynda Newby [employer] CHEMISTRY ORDERABLES F inal Result [facility] [phone] [place] [address] [place] [address] * T3 FREE (09/15/2025 7:25 AM CDT) Pathologist [facility] T3 FREE 3.4 2.3 - 4.2 pg/mL [facility] Comment: FASTING:NO FASTING: NO Test Performed at: [facility] [address] [facility] [place] [address] [place] [address] Nimesh Lopez MD Blood 09/15/2025 7:25 AM CDT 09/15/2025 7:25 AM CDT [facility] Lynda Healionicsjose l [employer] CHEMISTRY ORDERABLES F inal Result [facility] [phone] [facility] [address] [place] [address] * TSH (09/15/2025 7:25 AM CDT) TSH 3.24 mIU/L [facility]Kev adina [place] Comment: Reference Range > or = 20 Years 0.40-4.50 Ranges First trimester 0.26-2.66 Second trimester 0.55-2.73 Third trimester 0.43-2.91 FASTING:NO FASTING: NO Test Performed at: [facility] [place] [address] [place] [address] [facility] Blood 09/15/2025 7:25 AM CDT 09/15/2025 7:25 AM CDT Jacqueline Newby DO CHEMISTRY ORDERABLES F inal Result Performing Organization Address City/[facility]/ZIP Code Phone Number [facility] [phone] [place] [address] [address] [place] [address] * T4 FREE (09/15/2025 7:25 AM CDT) Pathologist [facility] T4 FREE 0.9 0.8 - 1.8 ng/dL [facility] [place] Comment: Test Performed at: [place] [address] [address] [place] [address] [facility] Blood 09/15/2025 7:25 AM CDT 09/15/2025 7:25 AM CDT Jacqueline Newby DO CHEMISTRY ORDERABLES F inal Result Performing Organization Address City/[facility]/ZIP Code Phone Number [facility] [phone] [place] [address] [address] [place] [address] * LUTEINIZING HORMONE (09/15/2025 7:25 AM CDT) Pathologist [facility] LUTEINIZING HORMONE 4.7 mIU/mL [facility] [facility] Comment: Reference Range Follicular Phase 1.9-12.5 Mid-Cycle Peak 8.7-76.3 Luteal Phase 0.5-16.9 Postmenopausal 10.0-54.7 Test Performed at: [facility] [address] [place] [address] Nimesh Lopez MD Blood 09/15/2025 7:25 AM CDT 09/15/2025 7:25 AM CDT [facility] Lynda [facility] CHEMISTRY ORDERABLES F inal Result Performing Organization Address [facility] de Phone Number [facility] [phone] [facility] [address] [place] [address] * FSH (09/15/2025 7:25 AM CDT) Pathologist [facility] FSH 8.1 mIU/mL [facility] Comment: Reference Range Follicular Phase 2.5-10.2 Mid-cycle Peak 3.1-17.7 Luteal Phase 1.5- 9.1 Postmenopausal 23.0-116.3 Test Performed at: [facility] [address] [place] [address] Nimesh Lopez MD Blood 09/15/2025 7:25 AM CDT 09/15/2025 7:25 AM CDT Jacqueline Lynda Healionicsjose l DO CHEMISTRY ORDERABLES F inal Result Performing Organization Address [facility] de Phone Number [facility] [phone] [facility] [address] [place] [phone] * CORTISOL LEVEL (09/15/2025 7:25 AM CDT) Pathologist [facility] CORTISOL LEVEL 10.6 mcg/dL [facility] Comment: The Cortisol result may be decreased on average 10-20% relative to results previously obtained with this method due to a recent quality improvement made in June 2025 by the reagent newspaper correspondent. Reference Range: For 8 a.m.(7-9 a.m.) Specimen: 4.0-22.0 Reference Range: For 4 p.m.(3-5 p.m.) Specimen: 3.0-17.0 * Please interpret above results accordingly * Test Performed at: [facility] [address] [place] [address] Nimesh Lopez MD Blood 09/15/2025 7:25 AM CDT 09/15/2025 7:25 AM CDT us Jacqueline Newby DO CHEMISTRY ORDERABLES F inal Result [facility] [phone] [facility] [address] [place] [address] * COMPREHENSIVE METABOLIC PANEL (09/15/2025 7:25 AM CDT) GLUCOSE 106 65 - 139 mg/dL [facility] Comment: Non-fasting reference interval BUN 16 7 - 25 mg/dL [facility] CREATININE 0.94 0.50 - 1.03 mg/dL [facility] GFR 74 > OR = 60 mL/min/1. 73m2 [facility] BUN/CREAT RATIO SEE NOTE: 6 - 22 (calc) [facility] Comment: Not Reported: BUN and Creatinine are within reference range. SODIUM 136 135 - 146 mmol/L [facility] POTASSIUM 4.2 3.5 - 5.3 mmol/L [facility] CHLORIDE 102 98 - 110 mmol/L [facility] CO2 26 20 - 32 mmol/L [facility] CALCIUM 8.7 8.6 - 10.4 mg/dL [facility] TOTAL PROTEIN 6.7 6.1 - 8.1 g/dL [facility] ALBUMIN 3.9 3.6 - 5.1 g/dL [facility] GLOBULIN 2.8 1.9 - 3.7 g/dL (calc) [facility] ALBUMIN/GLOBULIN RATIO 1.4 1.0 - 2.5 (calc) [facility] BILIRUBIN TOTAL 0.6 0.2 - 1.2 mg/dL [facility] ALKALINE PHOSPHATASE 70 37 - 153 U/L [facility] [place] AST 18 10 - 35 U/L [facility] ALT 12 6 - 29 U/L [facility] [place] Comment: FASTING:NO FASTING: NO Test Performed at: [facility] [address] [address] [place] [address] Nimesh Pelaez Vo Blood 09/15/2025 7:25 AM CDT 09/15/2025 7:25 AM CDT us Jacqueline Melendeznelsy DO CHEMISTRY ORDERABLES F inal Result [facility] [phone] [place] [address] [address] [place] [phone] * MAMMO 3D OLAYINKA SCREEN BILAT W OR WO CAD (09/24/2024 9:44 AM CHEMISTRY FACULTY MEMBER) Anatomical Region Laterality Modality Breast Bilateral Mammography 09/24/2024 9:45 AM CHEMISTRY FACULTY MEMBER Impressions 09/24/2024 10:23 AM CHEMISTRY FACULTY MEMBER IMPRESSION: No mammographic evidence of malignancy. RECOMMENDATIONS: Routine screening mammogram in one year. DICTATION LOCATION: [facility] Narrative 09/24/2024 10:23 AM CHEMISTRY FACULTY MEMBER BILATERAL FULL-FIELD DIGITAL SCREENING MAMMOGRAM WITH CAD WITH 3D TOMOSYNTHESIS DATE: 09/24/2024 9:44 AM HISTORY: Routine screening. TECHNIQUE: Full-field digital craniocaudal and mediolateral oblique projections of both breasts were obtained. Low-dose full-field digital breast tomosynthesis examination was performed with 2D and 3D acquisitions. Examination is read in conjunction with computer aided detection. COMPARISON: May 2019 through September 2023 BREAST COMPOSITION: The breasts are heterogeneously dense, which may obscure small masses. FINDINGS: No suspicious mass, suspicious microcalcifications, or architectural distortion in either breast is identified. Since the prior study, there has been no significant interval change. The computer aided diagnosis detects no significant abnormality. OVERALL FINAL ASSESSMENT: BI-RADS CATEGORY 1 - Negative Procedure Note Ish Gutierrez MD - 09/24/2024 BILATERAL FULL-FIELD DIGITAL SCREENING MAMMOGRAM WITH CAD WITH 3D TOMOSYNTHESIS DATE: 09/24/2024 9:44 AM HISTORY: Routine screening. TECHNIQUE: Full-field digital craniocaudal and mediolateral oblique projections of both breasts were obtained. Low-dose full-field digital breast tomosynthesis examination was performed with 2D and 3D acquisitions. Examination is read in conjunction with computer aided detection. COMPARISON: May 2019 through September 2023 BREAST COMPOSITION: The breasts are heterogeneously dense, which may obscure small masses. FINDINGS: No suspicious mass, suspicious microcalcifications, or architectural distortion in either breast is identified. Since the prior study, there has been no significant interval change. The computer aided diagnosis detects no significant abnormality. OVERALL FINAL ASSESSMENT: BI-RADS CATEGORY 1 - Negative IMPRESSION: No mammographic evidence of malignancy. RECOMMENDATIONS: Routine screening mammogram in one year. DICTATION LOCATION: [facility] Jacqueline Newby DO MAMMO ORDERABLES Final Result from Last 3 Months or Most Recently Relevant to Health Maintenance Insurance [place] [place] [address] [employer] [id number] [facility] Address: [facility] [phone] [place] [address] [employer] [place]AYA MORENO [id number] [employer] Advance Directives For more information, please contact: [phone] Documents on File Type Date Recorded Patient Social Organization Professor Expl anation Advance Directive Living Will 07/16/2020 7:22 AM [facility] choice plus * Full Code (Latest Code Status on File) Date Activated Date Inactivated Comments 10/06/2022 12:55 PM 10/07/2022 1:41 PM Care Teams Air Analysis Technician Relationship Specialty Start Date End Date Franky Hagen MD PCP - General Family Practice 01/21/11
--- OUTSIDE RECORDS SUMMARY | 2025-09-19 13:32 | XMS_ITS | Encounter Summary ---
Author Organization [facility] Address [address] [place] [address] Care Team Providers Care Apple Turner Name Role Phone Franky Hagen MD Primary Care Provider [phone] Encounter Details Date Type Department Care Team (Late st Contact Info) Description 09/17/2025 External Device Data ST[facility] ABSTRACTION Provider, Abstract NO ADDRESS ON FILE Social History Tobacco Use Types Packs/Day Years Used Date Smoking Tobacco: Never Smokeless Tobacco: Never Alcohol Use Standard Drinks/Week Comments Yes 0 (1 standard drink = 0.6 oz pur e alcohol) quarterly drink Comments No Sex and Gender Information Value Date Recorded Sex Assigned at Not on file Legal Sex Female 5:10 AM PHOTOTYPESETTING EQUIPMENT MONITOR Gender Identity Not on file Sexual Orientation Not on file documented as of this encounter Plan of Treatment Upcoming Encounters Date Type Department Care Team (Late st Contact Info) Description 10/11/2025 8:30 AM PHOTOTYPESETTING EQUIPMENT MONITOR Appointment [facility] [place] A [address] [place] [address] Franky Hagen MD [address] [place] [address] 09/02/2026 1:30 PM CDT Office Visit [facility] [address] [facility] [address] [place] [address] Jacqueline Newby, [address] [facility] [address] [place] [address] documented as of this encounter Visit Diagnoses Not on filedocumented in this encounter Care Teams Apple Turner Relationship Specialty Start Date End Date Franky Hagen MD PCP - General Family Practice 01/21/11 documented as of this encounter
--- OUTSIDE RECORDS SUMMARY | 2025-09-19 13:32 | XMS_ITS | Encounter Summary ---
Author Organization [facility] Address [address] [place] [address] Care Team Providers Care Risk Management Intern Name Role Phone Franky Hagen MD Primary Care Provider [phone] Encounter Details Date Type Department Care Team (Late st Contact Info) Description 12/19/2005 Outpatient Historical [facility] Maternal and Ground [address] [place] [address] Nadia Lopez MD [address] [place] [address] Social History Tobacco Use Types Packs/Day Years Used Date Smoking Tobacco: Never Assessed Comments Unknown Sex and Gender Information Value Date Recorded Sex Assigned at Not on file Legal Sex Female 5:10 AM VAMP STITCHER Gender Identity Not on file Sexual Orientation Not on file documented as of this encounter Plan of Treatment Upcoming Encounters Date Type Department Care Team (Late st Contact Info) Description 10/11/2025 8:30 AM VAMP STITCHER [facility]ointment [facility] [place] A [address] [place] [address] Franky Hagen MD [address] [place] [address] 09/02/2026 1:30 PM CDT Office Visit [facility] [address] [place] [address] Jacqueline Newby, DO [address] [place] [address] [place] [address] documented as of this encounter Visit Diagnoses Not on filedocumented in this encounter Care Teams Risk Management Intern Relationship Specialty Start Date End Date Franky Hagen MD PCP - General Family Practice 01/21/11 documented as of this encounter
[2025-09-20 06:31] LABS: Estimated Glomerular Filt Rate > 60
== END 2025-09-19 13:27 | disposition home or self-care (01) ==
LOC: ANHIMG 13:30
PROVIDERS: PCP Family Medicine; Visit Provider Urology
DX: R31.1 Benign essential microscopic hematuria (principal); N20.0 Calculus of kidney
CPT/HCPCS: 74178; Q9967